=== PATIENT | female | born 1940 | race Caucasian/White ===

== ENCOUNTER 2017-03-20 06:53 | Day surgery (SDC) | payer MEDICARE, SELFPAY ==
[2017-03-18 16:05] VITALS: BMI 27.9
[2017-03-20] VITALS (17 sets, daily range): BP systolic 118–174; BP diastolic 71–89; PULSE 63–77; RESP 12–22; TEMP 36.4–36.8; O2SAT 94–100
--- NOTE | 2017-03-20 08:27 | HMH.SCOPE ---
- Procedure: Date: 03/20/17 Procedure Performed:: Colonoscopy with polypectomy Indications:: This is a 76-year-old female who returns for short-term repeat colonoscopy. In August 2016 she underwent colonoscopy that was complicated by fairly poor bowel preparation. She did have scattered diverticulosis confirmed. Fairly significant tortuosity was encountered. A pedunculated right colon polyp was excised. An apparent lobulated/complex polyp of the right colon was transiently visualized but not resected secondary to significant tortuosity and only transient visualization. Performing Provider:: Pascual Morgan MD Referring Provider:: Dr. Chris Song Sedation:: IV sedation with 7 mg of Versed and 150 mcg of fentanyl Procedure:: After informed consent was obtained, the patient was taken to the endoscopy suite. IV sedation ensued after she was transferred to the left lateral decubitus position. Digital rectal exam revealed no significant abnormality. The colonoscope was placed in position. The entire colon was evaluated. Bowel preparation was moderate with irrigation and suctioning used to improve visualization. Tortuosity and spasticity were encountered, but were improved versus prior evaluation. A complex lobulated cecal polyp was excised by way of snare. This polyp was felt to most likely represent the transiently visualized polyp last year. Splenic flexure polyp was excised with cold biopsy forceps. A polyp at 40 cm was excised with cold biopsy forceps. Fairly significant scattered diverticulosis was noted. No additional lesions were seen. The colonoscope was carefully removed and the patient was transferred to recovery. Findings:: Moderate bowel preparation (improved versus prior evaluation) Spasticity and tortuosity encountered, but improved versus prior evaluation Scattered diverticulosis unchanged Complex lobulated cecal polyp (snared) Splenic flexure polyp Polyp at 40 cm Specimens:: Complex lobulated cecal polyp (snared) Splenic flexure polyp Polyp at 40 cm Recommendations:: Repeat colonoscopy in her in 2 years secondary to size/nature of cecal polyp Complications:: No immediate Estimated blood obtained (mL): 1
== END 2017-03-20 09:30 | disposition home or self-care (01) ==
LOC: OUTP 06:56
PROVIDERS: Family Provider Family Medicine; PCP Family Medicine; Visit Provider Surgery
PROC: 0DJD8ZZ Inspection of Lower Intestinal Tract, Via Natural or Artificial Opening Endoscopic (ICD-10-PCS; principal; 2017-03-20 07:30)
DX: K57.30 Diverticulosis of large intestine without perforation or abscess without bleeding (principal); Z85.038 Personal history of other malignant neoplasm of large intestine; K63.5 Polyp of colon
CPT/HCPCS: 45380; 45385; 88305; 99152; 99153

== ENCOUNTER → 2017-05-17 15:34 | Outpatient (CLI) | payer MEDICARE, SELFPAY ==
--- NOTE | 2017-05-17 15:39 | MM_ITS ---
MM Dig screening mamm BI w/CAD CAD Screening COMPARISON: Post biopsy and cyst aspiration left mammogram 05/08/2016 and bilateral digital mammograms 03/26/2016 INDICATION: There is a history of breast cancer patient's paternal aunt. There is been previous biopsy and cyst aspiration left breast. TECHNIQUE: Standard CC and MLO images were obtained. R2 CAD reviewed. FINDINGS: There is a diffusely heterogenic parenchymal pattern somewhat lessening the sensitivity of mammography. There are 2 biopsy clips left breast. The cystic-appearing spherical structure seen in the central portion left breast March 2016 is not seen and presumably was a cyst which was aspirated. There now is a apparently new oval density deep within the left breast which in retrospect may been present previously but has shown interval increase in size. This likely is a new cyst and recommend patient return for ultrasound left breast for confirmation. There are few benign-appearing calcifications in each breast there are no suspicious microcalcifications. IMPRESSION: Heterogenic parenchymal pattern with possible new oval density left breast BI-RADS Category: 0 Need Additional Imaging Evaluation RECOMMENDED FOLLOW-UP: IMM - IMMEDIATE FOLLOW-UP RECOMMENDED (A letter has been sent to the patient regarding results of the study.)
--- NOTE | 2017-05-17 16:26 | US_ITS ---
US breast LT complete COMPARISON: Mammogram same date HISTORY: Possible new mass left breast TECHNIQUE: Ultrasound of the entire breast FINDINGS: Diffuse heterogenic echogenicity is seen in this lady with prominent heterogenic fiber glandular densities on the mammogram performed same date. Is a hypoechoic oval lesion at 3:00 position outer breast measuring 1.4 x 0.7 1.2 cm which corresponds in size and location and overall appearance to the oval lesion on the mammogram. This shows acoustic enhancement and likely is a simple cyst. There are several smaller cystic lesions seen throughout the breast. There is no suspicious solid lesions seen. IMPRESSION: Ultrasound findings compatible with the diffuse heterogenic parenchymal pattern on mammogram with benign-appearing cyst corresponding in size and location to the dominant density on the mammogram. No further workup is indicated unless the lesion becomes symptomatically and the patient would like to cyst aspiration. Recommend the patient continue with yearly screening mammography.
--- NOTE | 2017-05-17 16:26 | US_ITS ---
US breast RT complete COMPARISON: Ultrasound right breast 03/25/2014 and bilateral mammograms 05/17/2017 HISTORY: Diffusely heterogenic parenchymal pattern on mammogram same date history of previous cysts TECHNIQUE: Targeted ultrasound of the entire breast FINDINGS: There is a small hypoechoic cystic lesion with internal septation at the 6:00 position measuring 0.6 x 0.9 x 0.5 cm. There is a tiny hypoechoic benign-appearing cystic lesion at the 9:00 position measuring 0.5 x 0.4 x 0.5 cm. There are mildly dilated fluid-filled ducts in the subareolar region. There is no suspicious solid mass seen. IMPRESSION: Ultrasound confirmation of benign-appearing cysts one of which is complex and/or with internal septation, no suspicious cystic or solid lesion identified., recommend the patient continue yearly screening mammography.
== END ==
PROVIDERS: Family Provider Family Medicine; PCP Family Medicine; Visit Provider Surgery
DX: Z85.9 Personal history of malignant neoplasm, unspecified (principal); Z12.31 Encounter for screening mammogram for malignant neoplasm of breast; R92.8 Other abnormal and inconclusive findings on diagnostic imaging of breast
CPT/HCPCS: 76641; 77067

== ENCOUNTER → 2017-06-03 13:04 | Outpatient (CLI) | payer MEDICARE, SELFPAY ==
--- NOTE | 2017-06-03 13:08 | XR_ITS ---
XR DEXA axial skeleton HISTORY: ITS.REASON: OSTEOPENIA ORDERING PHYSICIAN: Efra Song MD PATIENT AGE: 77 years COMPARISON: 05/28/2011 FINDINGS: The BMD measured at the Right femoral neck is 1.269 g/cm squared with a T score of 1.7. This is considered normal according to the World Health Organization criteria. Fracture risk is low. The L1 L4 density has a T score of 5.8 is normal. There has been a 3% increase in bone density in the lumbar spine and 1% decrease in bone density in the hips compared to the previous exam.. IMPRESSION: Normal bone density.
== END ==
PROVIDERS: Family Provider Family Medicine; PCP Family Medicine; Visit Provider Family Medicine
DX: M85.89 Other specified disorders of bone density and structure, multiple sites (principal)
CPT/HCPCS: 77080

== ENCOUNTER → 2018-05-19 10:21 | Outpatient (CLI) | payer MEDICARE, SELFPAY ==
--- NOTE | 2018-05-19 10:24 | MM_ITS ---
MM Dig screening mamm BI w/CAD, US breast RT complete, US breast LT complete ORDERING PHYSICIAN : Efra Song MD PATIENT AGE: 78 years GENDER: Female COMPARISON: March 2016 & April 2017 bilateral screening mammogram. Bilateral breast ultrasound from April 2017 and May 2018 INDICATION: ITS.REASON: SCREENING TECHNIQUE: Standard CC and MLO images were obtained. R2 CAD reviewed . BILATERAL DIGITAL SCREENING MAMMOGRAM: . Dense somewhat nodular breast bilaterally reflecting underlying cyst and fibrocystic changes. . RIGHT BREAST: Areas of nodularity on one view dissipate on another in overall B right breast appears stable to previous study 2018 and 2017 listed above. LEFT BREAST: Previous percutaneous biopsy clip seen at the lateral left breast one anteriorly and one more laterally and deep breas BILATERAL BREAST ULTRASOUND RIGHT BREAST ULTRASOUND including axillary survey Survey of the entire right breast along with axillary survey Numerous small cyst scattered throughout the breast similar to previous study. No focal area of significant concern. Follow-up adequate 3:00. Small 5.5 mm cyst central breast 5:00 there is a collection of cyst which measures up to 1.1 cm.. This is similar to the area described at 6:00 and appears reasonably stable, and cystic in nature. An be followed. 6:00 Small 4 mm cyst at 6-7:00 4.. Central breast. 6:00 another small 5.9 mm cyst central breast. 9:00 posterior to the nipple there there is an elongated cyst or area of ductal prominence & ectasia which appears to account for the accounting for elongated fluid-filled area. Similar area was seen on previous study. This can be followed.. Survey of axillary regions reveal no significant findings in either breast. LEFT BREAST ULTRASOUND including axillary survey Survey entire breast included axillary survey performed.. Fibrocystic breast Enlarging dominant benign cyst is seen at 4:00, with scattered other small cyst. 4:00: A 22 mm ovoid density at deep lateral left breast has enlarged since 2018 is been followed with ultrasound that this is compatible with benign cyst on today's and prior ultrasound.. Thin wall. Clear fluid Again be followed but if palpable feature here raises concern to the patient clinically , may consider offering clinically aspiration under ultrasound guidance is an option. . 5:00 8 mm debris-filled cyst. Slightly larger but not of concern. 9:00:. Tiny 4.5 mm cyst central region breast. 10:00: A 6.5 mm cystic area central region breast 12:00. 6.5 mm benign cyst central region 1:00. There is a 8.7 mm debris-filled cyst.. Behind nipple 3:00 thin 5.7 mm cyst near nipple . Some these areas was evident before. Scattered benign nodes of the axillary region again observed. ======IMPRESSION: ======== Fibrocystic breast. Moderately dense heterogeneous appearance. LEFT BREAST. Today's Mammogram & ultrasound shows enlarging 2.2 cm benign-appearing cyst at deep central left breast, towards 4 o'clock position.. Ultrasound shows numerous other small benign appearing cyst in debris-filled cyst. RIGHT BREAST Mammogram shows no new areas of significant concern. Ultrasound shows scattered small cyst debris-filled cysts throughout . No new findings of significant concern right breast overall.. Bilateral mammogram 1 year adequate & recommended If this benign-appearing cystic area Left breast is of significant concern to the patient clinically, it could be aspirated under ultrasound, but on today's imaging and appears to be clear benign cyst with no features of to raise concern. BI-RADS Category: 2 Benign Finding(s) RECOMMEN
== END ==
PROVIDERS: PCP Family Medicine; Visit Provider Family Medicine
DX: Z12.31 Encounter for screening mammogram for malignant neoplasm of breast (principal); R92.8 Other abnormal and inconclusive findings on diagnostic imaging of breast
CPT/HCPCS: 76641; 77067

== ENCOUNTER → 2018-09-03 10:20 | Outpatient (CLI) | payer MEDICARE, SELFPAY ==
--- NOTE | 2018-09-03 10:25 | CT_ITS ---
CT abdomen pelvis wo/w con CLINICAL INDICATION: ITS.REASON: LT LEG EDEMA,H/O ENDOMETRIAL CA ORDERING PHYSICIAN: Efra Song MD PATIENT AGE: 78 years COMPARISON: 11/26/2015 TECHNIQUE: Contrast Used:75ml Optiray 350 Oral Contrast: None Axial images obtained without and with contrast with sagittal and coronal reformats. All CT scans at the facility use one or more dose reduction, viz: automated exposure control, ma/kV adjustment per patient size (including targeted exams where dose is matched to indication, i.e. head), or iterative reconstruction technique. FINDINGS: There are chronic changes in the lung bases. The liver, gallbladder, adrenal glands and pancreas have an unremarkable appearance. 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 No renal or ureteral calculi. No hydronephrosis. There is a small umbilical hernia which contains fat. There are post hysterectomy changes. There is mild thickening of the urinary bladder wall which may be due to nondistention. Cystitis is also a consideration. No pelvic mass or abnormal fluid collection is evident. There is no evidence of pelvic or inguinal or retroperitoneal adenopathy. There is a small left-sided Spigelian hernia in the upper abdominal region which contains fat. No evidence of appendicitis or diverticulitis. There is diverticulosis of the descending and sigmoid colon. No acute bony findings are evident. IMPRESSION: 1. No acute abdominal or pelvic findings. 2. There is mild thickening of the urinary bladder which may be due to nondistention or cystitis. 3. Colonic diverticulosis. No evidence of diverticulitis. 4. Small umbilical and small left Spigelian hernia in the upper abdomen containing fat
== END ==
PROVIDERS: PCP Family Medicine; Visit Provider Family Medicine
DX: R60.0 Localized edema (principal); Z85.42 Personal history of malignant neoplasm of other parts of uterus
CPT/HCPCS: 74178; Q9967

== ENCOUNTER → 2019-06-23 11:01 | Outpatient (CLI) | payer MEDICARE, SELFPAY ==
[2019-06-23 11:06] LABS: Adenovirus,PCR Not Detected (NotDetected); Bordetella Pertussis Not Detected (NotDetected); Chlamydophila Pneumoniae, PCR Not Detected (NotDetected); Coronavirus 19, PCR Not Detected (NotDetected); Coronavirus 229E Not Detected (NotDetected); Coronavirus NL63 Not Detected (NotDetected); Coronavirus OC43 Not Detected (NotDetected); Coronovirus HKU1,PCR Not Detected (NotDetected); Human Metapneumovirus Not Detected (NotDetected); Influenza A, PCR Not Detected (NotDetected); Influenza AH1, 2009 Not Detected (NotDetected); Influenza AH1, PCR Not Detected (NotDetected); Influenza AH3,PCR Not Detected (NotDetected); Influenza B, PCR Not Detected (NotDetected); Mycoplasma Pneumoniae, PCR Not Detected (NotDected); Parainfluenza 1, PCR Not Detected (NotDetected); Parainfluenza 2, PCR Not Detected (NotDetected); Parainfluenza 3, PCR Not Detected (NotDetected); Parainfluenza 4, PCR Not Detected (NotDetected); Respiratory Syncytial Virus Not Detected (NotDetected); Rhinovirus/Enterovirus Not Detected (NotDetected)
--- NOTE | 2019-06-24 15:41 | PC.NURSE ---
notified pt and Gopi RN of negative COVID 19 results.
== END ==
PROVIDERS: Visit Provider Surgery
DX: Z01.818 Encounter for other preprocedural examination (principal)
CPT/HCPCS: 87581; 87633; 87798

== ENCOUNTER 2019-06-25 08:35 | Day surgery (SDC) | payer MEDICARE, SELFPAY ==
--- NOTE | 2019-06-22 13:36 | SUR.PREOP ---
06/22/19 @ 1459--PHONE CALL MADE TO PATIENT. PATIENT UNDERSTANDS THAT LAB WORK AND COVID TESTING NEEDS TO BE COMPLETED @ 1030 ON 06/23/19. PATIENT UNDERSTANDS IF LAB WORK AND COVID-19 TESTS ARE NOT COMPLETED BY 12PM ON THAT DATE, THE SURGERY SCHEDULED WILL BE CANCELLED AND RESCHEDULED FOR ANOTHER TIME.
[2019-06-23 13:30] VITALS: BMI 31.0
[2019-06-25 08:56] VITALS: BP 156/61; PULSE 78; RESP 18; TEMP 36.7; O2SAT 96
[2019-06-25 09:47] VITALS: O2SAT 98
--- NOTE | 2019-06-25 10:24 | HMH.SCOPE ---
- Procedure: Date: 06/25/19 Procedure Performed:: Colonoscopy with polypectomy by means other than snare Indications:: History of colon polyps Performing Provider:: Pascual Morgan MD Referring Provider:: . Sedation:: Monitored anesthesia care Procedure:: After informed consent was obtained the patient was taken to the endoscopy suite. Sedation ensued after the patient was transferred to the left lateral decubitus position. Pulse, blood pressure, and oxygen saturation were monitored throughout the procedure. Digital rectal exam revealed no significant abnormality. The colonoscope was placed in position. The entire colon was evaluated. The colonoscope was carefully removed and the patient was transferred to recovery in stable condition. Please see findings and specimens below for detail. Findings:: Bowel preparation relatively fair Fairly significant spasticity Scattered diverticulosis Polyps (see specimens) Specimens:: Hepatic flexure polyp Polyp at 15 cm Recommendations:: Timing of repeat colonoscopy is pending pathology but will likely be around 3 years secondary to history of significant polyps and ongoing limitations in visualization (spasticity). Complications:: No immediate Estimated blood obtained (mL): 1
[2019-06-25 10:25] VITALS: BP 101/52; PULSE 85; RESP 18; TEMP 36.2; O2SAT 93
[2019-06-25 10:35] VITALS: BP 114/66; PULSE 78; RESP 18; O2SAT 96
[2019-06-25 10:45] VITALS: BP 129/75; PULSE 74; RESP 18; O2SAT 99
[2019-06-25 10:55] VITALS: BP 137/74; PULSE 75; RESP 18; O2SAT 100
== END 2019-06-25 11:05 | disposition home or self-care (01) ==
LOC: OUTP 08:37
PROVIDERS: PCP Family Medicine; Visit Provider Surgery
PROC: 0DJD8ZZ Inspection of Lower Intestinal Tract, Via Natural or Artificial Opening Endoscopic (ICD-10-PCS; principal; 2019-06-25 09:30)
DX: Z12.11 Encounter for screening for malignant neoplasm of colon (principal); D12.3 Benign neoplasm of transverse colon; D12.5 Benign neoplasm of sigmoid colon; Z86.010 Personal history of colon polyps; E03.9 Hypothyroidism, unspecified; I10 Essential (primary) hypertension; Z88.7 Allergy status to serum and vaccine; Z88.8 Allergy status to other drugs, medicaments and biological substances; Z91.040 Latex allergy status; Z79.82 Long term (current) use of aspirin; Z79.899 Other long term (current) drug therapy
CPT/HCPCS: 45388; 88305

== ENCOUNTER → 2019-06-26 10:15 | Outpatient (CLI) | payer MEDICARE, SELFPAY ==
--- NOTE | 2019-06-26 10:27 | MM_ITS ---
PROCEDURE: MM DIG SCREENING MAMM BI W/CAD Digital Breast Tomosynthesis Included CLINICAL INDICATION: SCREENING the COMPARISON: [facility] DIG MAMM-SCREEN KYLER from 03/24/2015 [facility] DIG MAMM-SCREEN KYLER W/CAD from 03/26/2016 [facility] DIG MAMM-DX UNI-LT W/CAD from 05/08/2016 BREASTRT US breast RT complete from 05/17/2017 [facility] MM Dig screening mamm BI w/CAD from 05/17/2017 BREASTLT US breast LT complete from 05/19/2018 [facility] MM Dig screening mamm BI w/CAD from 05/19/2018 BREASTRT US breast RT complete from 05/19/2018 US BREAST RT COMPLETE from 06/26/2019 US BREAST LT COMPLETE from 06/26/2019 TECHNIQUE: Standard CC and MLO images and 3D Tomosynthesis was obtained. R2 CAD reviewed. FINDINGS: Average fibroglandular tissue. Multiple scattered areas of of asymmetry with scattered benign-appearing nodules. Nodularity noted in the medial aspect of the right breast on the tomogram images. This area measures 9 mm possibly corresponding to the complex cystic area noted on the ultrasound of the same day. Vague area of nodularity superior right breast on the MLO view with a small calcific density. This is possibly due to overlapping fibroglandular tissue. Six-month follow-up suggested. Large benign-appearing nodule is present in the outer aspect of the left breast at the 3 o'clock region at approximately 4 cm consistent with a cyst. Surgical clip is present in the upper outer aspect of the left breast. No malignant appearing mass or malignant-appearing microcalcification is evident. The left breast cyst has increased in size compared to the previous exam there are multiple other smaller cysts present. Right breast ultrasound: Multiple cysts are present. There is a complex cyst at 2 o'clock at 5 mm and a complex septated cyst at 4 o'clock at 10 mm. There is an irregular area of echogenicity at the 7 o'clock region which appears to represent an area fibrocystic change with ductal ectasia. Left breast ultrasound: Multiple cysts are present including a 3.5 by 3 cm cyst at 3 o'clock and a 13 mm cyst at 6 o'clock as well as other smaller cyst. There is a 2 x 0.7 cm area of decreased echogenicity in the 4 o'clock region of the left breast laterally probably related overlying fibroglandular tissue. Follow-up suggested. IMPRESSION: Multiple bilateral breast cysts with scattered areas of asymmetry. There is some nodularity in the medial and superior right breast probably benign. Probable fibrocystic change with ductal ectasia at 7 o'clock in the right breast. Recommend bilateral 6 month mammographic and sonographic follow-up BI-RAD Category: 3 Probably Benign Finding Short Term Follow-up FOLLOW-UP: 6M 6Month Follow-up (A letter has been sent to the patient regarding results of the study.) Dictated by: Shawn Hauser MD 07/03/2019 13:20 Electronically signed by Shawn Hauser MD in [place] 07/03/2019 13:20
== END ==
PROVIDERS: PCP Family Medicine; Visit Provider Family Medicine
DX: Z12.31 Encounter for screening mammogram for malignant neoplasm of breast (principal); N60.12 Diffuse cystic mastopathy of left breast; N60.11 Diffuse cystic mastopathy of right breast
CPT/HCPCS: 76641; 77063; 77067

== ENCOUNTER 2019-09-15 14:48 | Emergency (ER) | payer MEDICARE, SELFPAY ==
[2019-09-15 15:17] VITALS: BP 140/77; PULSE 77; RESP 18; TEMP 37.4; O2SAT 98; BMI 30.9
--- NOTE | 2019-09-15 15:21 | HMH.EDUTC ---
[facility] [place] Disposition Clinical Impression: COVID-19 virus test result unknown Otitis media Qualifiers: Otitis media type: suppurative Chronicity: acute Laterality: right Recurrence: non-recurrent Spontaneous tympanic membrane rupture: without spontaneous rupture Qualified Code(s): H66.001 - Acute suppurative otitis media without spontaneous rupture of ear drum, right ear Disposition: Home, Self-Care Condition on Discharge: Good Instructions: Middle Ear Infection, Preventing the Spread of Coronavirus Discharge Instructions Prescriptions: Amoxicillin [Amoxicillin 500mg Tab] 500 mg PO BID 10 Days #20 tab Prescription Printed Referrals: Efra Song MD [Primary Care Provider] - Time of Disposition: 15:37 Medical Decision Making - Mehul Inquiry Pt receiving controlled substance: No Vital Signs: 09/15/19 15:17 Temperature 99.3 F Temperature Source Oral Pulse Rate [Right Brachial] 77 Respiratory Rate 18 Blood Pressure [Right Arm] 140/77 Blood Pressure Mean [Right Arm] 98 Blood Pressure Source [Right Arm] Automatic Cuff Blood Pressure Position [Right Arm] Sitting 02 Sat by Pulse Oximetry 98 Oxygen Delivery Method Room Air [facility] [place] HPI - General Chief complaint: Urgent Treatment Center Stated complaint: sore throat,tinoco,neck pain Time Seen by Provider: 09/15/19 15:21 Mode of Arrival: Ambulatory Source of Information: Patient Limitations: No Limitations Description of Symptoms (Recalled from Triage Doc. by RN): can't turn head in either direction, pain in neck, gland region both sides HEENT Symptoms (Recalled from RN notes): Yes Resp Symptoms (Recalled from RN notes): No Skin Symptoms (Recalled from RN notes): No MS Symptoms (Recalled from RN notes): Yes Functional Status (Recalled from RN notes): none - History of Present Illness Provider Complaint: 79 yr old female presents for fever 99.7, runny nose, neck soreness, headache, pain in rt side of head by ear. Pt states she had a episode 6 weeks ago when she felt her throat was closed and coughing while she was in [employer]. pt request covid test - Related Data Home Medications Medication Instructions Recorded Confirmed aspirin 81 mg tablet,delayed 81 mg PO DAILY 03/06/17 09/15/19 release atorvastatin 20 mg tablet 20 mg PO DAILY 03/06/17 09/15/19 cetirizine 10 mg capsule 10 mg PO DAILY 03/06/17 09/15/19 coenzyme Q10 100 mg capsule 100 mg PO DAILY 03/06/17 09/15/19 ibuprofen 200 mg tablet 200 mg PO DAILY 03/06/17 09/15/19 levothyroxine 50 mcg tablet 50 mcg PO DAILY 03/06/17 09/15/19 ckfizxpr-iwa-nxsti acid 0.4 1 tab PO QAM 03/06/17 09/15/19 mg-lycopene 300 mcg-lutein 250 mcg tablet Calcium Carbonate/Vitamin D3 1 each PO DAILY 03/18/17 09/15/19 [Oyster Shell 250 mg + Vit D Tb] Gabapentin [Gabapentin 300mg Cap] 300 mg PO TID 03/18/17 09/15/19 fluticasone propionate 50 1 spray INTRANASAL DAILY 30 Days 10/30/17 09/15/19 mcg/actuation nasal #16 g spray,suspension triamterene 37.5 0.5 tab PO DAILY 90 Days #45 tab 10/30/17 09/15/19 mg-hydrochlorothiazide 25 mg tablet metoprolol succinate 25 mg 25 mg PO DAILY 30 Days #30 tab 04/30/18 09/15/19 tablet,extended release 24 hr montelukast 10 mg tablet 10 mg PO DAILY 05/11/19 09/15/19 Previous Rx's Medication Instructions Recorded Amoxicillin [Amoxicillin 500mg Tab] 500 mg PO BID 10 Days #20 tab 09/15/19 Allergies Allergy/AdvReac Type Severity Reaction Status Date / Time gum mastic [GUM MASTIC] Allergy Intermediate I-RASH Verified 09/15/19 15:13 latex [LATEX] Allergy Mild Verified 09/15/19 15:13 adhesive tape [ADHESIVE TAPE] Allergy Unknown Verified 09/15/19 15:13 montelukast [MONTELUKAST] Allergy Unknown I-ITCHING Verified 09/15/19 15:13 BAAL Allergy Intermediate Uncoded 07/08/19 11:10 CINNAMON ALCOHOL Allergy Intermediate Uncoded 07/08/19 11:10 LAXATIVES Allergy Intermediate HEADACHE Uncoded 07/08/19 11:10 VICKEY EPHEDRINE NASAL Allergy Intermediate Uncoded 07/08/19 11:10 DECONGES
[2019-09-15 15:34] LABS: UTC Strep Screen (Rapid) Negative (Negative)
[2019-09-15 15:50] VITALS: BP 140/80; PULSE 80; RESP 20; TEMP 37.4
[2019-09-17 13:34] LABS: Covid-19 Nasal PCR Sendout Lex NOT DETECTED
== END 2019-09-15 15:52 | disposition home or self-care (01) ==
PROVIDERS: Emergency Provider Nurse Practitioner Family; PCP Family Medicine
DX: H66.001 Acute suppurative otitis media without spontaneous rupture of ear drum, right ear (principal); Z03.818 Encounter for observation for suspected exposure to other biological agents ruled out; Z91.040 Latex allergy status; Z91.048 Other nonmedicinal substance allergy status; Z88.8 Allergy status to other drugs, medicaments and biological substances
CPT/HCPCS: 87880; 99202; U0004

== ENCOUNTER → 2019-12-28 13:24 | Outpatient (CLI) | payer MEDICARE, SELFPAY ==
--- NOTE | 2019-12-28 | MM_ITS ---
PROCEDURE: MM DIG MAMM BI DX W/CAD Digital Breast Tomosynthesis Included CLINICAL INDICATION: FIBROCYSTIC BREAST DISEASE Follow-up abnormal mammogram COMPARISON: [facility] MM Dig screening mamm BI w/CAD from 05/17/2017 US BREASTLT US breast LT complete from 05/19/2018 [facility] MM Dig screening mamm BI w/CAD from 05/19/2018 MG MM DIG SCREENING MAMM BI W/CAD from 06/26/2019 US US BREAST RT COMPLETE from 06/26/2019 US US BREAST LT COMPLETE from 12/28/2019 US US BREAST RT COMPLETE from 12/28/2019 TECHNIQUE: Standard CC and MLO images and 3D Tomosynthesis was obtained. R2 CAD reviewed. Bilateral breast ultrasound FINDINGS: There is dense fibroglandular tissue which decreases the sensitivity of mammography. Numerous small nodular densities are present bilaterally. There is a 6 mm nodule in the medial aspect of the right breast which has a benign appearance slightly increased compared to the previous exam. There is a cyst in this region on ultrasound which may correspond to this abnormality. Left breast ultrasound: Multiple cysts are present in the left breast including a 8 mm cyst at 12 o'clock, 5 mm cyst at 2 o'clock, 8 x 5 mm cyst at 4 o'clock, 8 mm hypoechoic nodule at 6 o'clock consistent with a complicated cyst not significantly changed. 6 mm cyst at 7 o'clock. Ductal ectasia at 7 o'clock. 4 mm cyst at 9 o'clock Left breast: There remains a dominant nodule at 4 x 2.8 cm in the outer aspect of the left breast slightly increased in size. Just anterior to this nodule is an additional nodule measuring 18 mm within the central aspect of the breast slightly more prominent. Other smaller benign-appearing nodules are present. No malignant appearing mass or malignant-appearing calcification is evident. Clips are present in the outer aspect of the left breast from prior biopsy. Left breast ultrasound: Multiple cysts are noted. At 2 o'clock there is a 16 mm cyst. At 3 o'clock there is a 3 x 1.4 cm cyst.. 5 mm cyst also noted at 3 o'clock. 6 mm cyst at 4 o'clock. 16 mm cyst at 6 o'clock. Other smaller cysts are present. There is retroareolar ductal ectasia. No suspicious lesions are evident. IMPRESSION: BI-RAD Category: 2 Benign Finding(s) FOLLOW-UP: 1YR 1 Year Follow-up (A letter has been sent to the patient regarding results of the study.) Dictated by: Shawn Hauser MD 01/01/2020 11:33 Shawn Hauser MD in [place] 01/01/2020 11:33
== END ==
PROVIDERS: PCP Family Medicine; Visit Provider Family Medicine
DX: N60.12 Diffuse cystic mastopathy of left breast (principal); N60.11 Diffuse cystic mastopathy of right breast
CPT/HCPCS: 76641; 77062; 77066; G0279

== ENCOUNTER → 2020-09-16 13:40 | Outpatient (CLI) | payer MEDICARE, SELFPAY ==
--- NOTE | 2020-09-16 | CA_ITS ---
APPROVED REPORT EXAM: Comprehensive 2D, Doppler, and color-flow Echocardiogram Caterer'S Aide: Kristi Madera RT(R) Ht: 5 ft 4 in Wt: 183lbs BSA: 1.88 BP: 126/60 mmHg Indications: Edema, HTN, hyperlipidemia, asthma, hx uterine cancer, TIA, hypothyroidism 2D Dimensions LVOT 2.12 cm (M/F) 1.5-2.5 LA Volume 37.70 mL LA Volume Index 20.05 mL/m2 (M/F) 16-34 M-Mode Dimensions RVDd 2.54 cm (0.9-2.6) LA Diam 4.47 cm (1.9-4.0) LVDd 4.39 cm (3.5-5.7) Ao Diam 2.60 cm (2.0-3.7) LVDs 3.30 cm (3.5-5.7) IVSd 1.01 cm (0.6-1.1) PWd 1.01 cm (0.6-1.1) EF (Teich) 49.40% FS 24.80% EDV (Teich) 87.20 mL ESV (Teich) 44.10 mL LV Diastology E Decel Time 283.00 (160-240 msec) E/A Ratio 0.8 MED E' 4.80 (< 7 cm/sec) E'/MED E' Ratio 14.75 (>14) LAT E' 5.60 (<10 cm/sec) E/LAT E' Ratio 12.64 (>14) Mitral Valve MV E Max James. 71.00 (40-130 cm/s) MV A Velocity 93.00 (40-130 cm/s) E/A Ratio 0.76 MV Decel. Time 283.00 (160-240 ms) MV PHT 83.00 ms Left Ventricle Left atrium is mildly enlarged, left ventricle is normal size, mild concentric left ventricular hypertrophy, visually estimated ejection fraction 55% with no regional wall motion abnormality, grade 1 diastolic dysfunction seen without tissue Doppler evidence of raise left atrial pressure. Right Ventricle Right atrium and right ventricle are normal size and contractility. Aortic Valve Aortic valve is minimally thickened and fibrosed, there is no aortic stenosis or aortic insufficiency. Mitral Valve Mitral valve is grossly normal, there is mild mitral regurgitation Tricuspid Valve Tricuspid valve grossly normal, there is mild tricuspid regurgitation, tricuspid regurgitation jet velocity is inadequate for calculation of the right ventricular systolic pressure. Pulmonic Valve Pulmonic valve is poorly visualized. Great Vessels Aortic root is normal size Pericardium No significant pericardial effusion noted. Conclusion 1. Mildly enlarged left atrium, normal left ventricular size, mild concentric left ventricular hypertrophy, visually estimated ejection fraction 55% with no regional wall motion abnormality, grade 1 diastolic dysfunction seen without tissue Doppler evidence of raise left atrial pressure. 2. Thickened and calcified aortic valve without aortic stenosis or aortic insufficiency. 3. Mild mitral and tricuspid regurgitation. 4. No significant pericardial effusion noted. Electronically signed by : Jc Steel, 09/16/2020 18:43:57
== END ==
PROVIDERS: PCP Family Medicine; Visit Provider Family Medicine
DX: R60.0 Localized edema (principal)
CPT/HCPCS: 93306

== ENCOUNTER → 2020-12-30 14:59 | Outpatient (CLI) | payer MEDICARE, SELFPAY ==
--- NOTE | 2020-12-30 15:01 | MM_ITS ---
PROCEDURE INFORMATION: Exam: MG Bilateral Diagnostic Breast Tomosynthesis Exam date and time: 12/30/2020 3:01 PM Age: 80 years old Clinical indication: Due for annual screening mammography. History of bilateral breast cysts TECHNIQUE: Imaging protocol: Bilateral Diagnostic tomosynthesis and 2D mammography including computer-aided detection (CAD) when performed. Unilateral or bilateral exam. COMPARISON: 1. MG MM DIG MAMM BI DX W/CAD 12/28/2019 1:35 PM 2. MG MM DIG SCREENING MAMM BI W/CAD 06/26/2019 10:44 AM 3. MG SCBI MM Dig screening mamm BI w/CAD 05/19/2018 10:51 AM 4. MG SCBI MM Dig screening mamm BI w/CAD 05/17/2017 3:46 PM FINDINGS: MAMMOGRAPHY: The breast tissue is heterogeneously dense, which may obscure small masses. 3 o'clock posterior left breast mass, 1 o'clock middle 1/3 left breast mass, and slightly medial left middle 1/3 mass have progressed in size slightly when compared with prior mammograms. These maintain circumscribed margins with gently lobulated contour and no associated architectural distortion or suspicious calcifications. Please refer to left breast ultrasound same day which demonstrated numerous complicated cysts for which six-month follow-up targeted left breast ultrasound was recommended Otherwise, no new mass, architectural distortion, or suspicious calcifications have developed to suggest malignancy within either breast. No axillary adenopathy. IMPRESSION: No mammographic evidence of malignancy. Continued annual screening mammography is recommended. Please refer to ultrasound of the left breast from 12/30/2020 which was submitted separately from this examination. Short-term follow-up targeted ultrasound of the left breast was recommended to assure stability of enlarging complicated cysts ASSESSMENT: BI-RADS category 2: Benign
--- NOTE | 2020-12-30 15:13 | US_ITS ---
PROCEDURE INFORMATION: Exam: US Right Breast, Complete Exam date and time: 12/30/2020 3:13 PM Age: 80 years old Clinical indication: Short-term follow-up was requested to assess stability of right breast nodules TECHNIQUE: Imaging protocol: Complete ultrasound of all four quadrants of the Right breast and the retroareolar regions, including ultrasound of the axilla when performed. COMPARISON: Right breast Ultrasound 12/28/2019, 06/26/2019, 05/17/17 FINDINGS: Breast: Heterogeneously hypoechoic mostly circumscribed horizontally oriented masses throughout the right breast demonstrates morphologically similar to each other features consistent with complicated cysts as follows: 6 x 7 x 7 mm 12 o'clock outer compared with 6 x 8 x 6 mm on 12/28/2019 4 x 4 x 3 mm right 2 o'clock periareolar compared with 5 x 6 x 4 mm on 12/28/2019 4 mm 2 o'clock periareolar compared with 6 mm on 12/28/2019 7 x 6 x 3 mm 3 o'clock periareolar compared with 4 mm previously 6 mm 4 o'clock periareolar compared with 8 mm previously 6 mm 6 o'clock right breast compared with 7 mm previously 12 mm 9 o'clock periareolar deep tissues, not previously assessed No suspicious solid or cystic mass is apparent. No architectural distortion or shadowing is present IMPRESSION: There are numerous complicated cystic structures, most of which has slightly diminished in size and a couple of which have set slightly progressed in size throughout the right breast. These have features of benign cysts. No sonographic evidence of malignancy. Annual mammographic screening is recommended unless otherwise clinically indicated. ASSESSMENT: BI-RADS category 2: Benign
--- NOTE | 2020-12-30 15:13 | US_ITS ---
PROCEDURE INFORMATION: Exam: US Left Breast, Complete Exam date and time: 12/30/2020 3:13 PM Age: 80 years old Clinical indication: Short-term follow-up ultrasound was recommended to assess stability of left breast masses TECHNIQUE: Imaging protocol: Complete ultrasound of all four quadrants of the Left breast and the retroareolar regions, including ultrasound of the axilla when performed. COMPARISON: US BREAST LT COMPLETE 12/28/2019 2:07 PM FINDINGS: Breast: Hypoechoic/anechoic mostly circumscribed a horizontally oriented mass with posterior acoustic enhancement and morphologically similar features to 1 another , highly suggestive of benign complicated cysts as follows: 4 mm 12 o'clock periareolar 21 by 21 x 14 mm 12 o'clock periareolar, previously 4 mm 32 x 38 x 16 mm 1 o'clock left mid, previously 35 x 14 by 28 mm 8 x 3 x 9 mm 3 o'clock periareolar, unchanged 33 x 29 x 24 mm 5 o'clock outer left breast 23 x 19 x 14 mm 6 o'clock periareolar 18 by 20 x 16 mm 9 o'clock periareolar 9 x 9 x 7 mm 11 o'clock left mid breast No axillary adenopathy No suspicious solid or cystic mass is present No architectural distortion or shadowing is present IMPRESSION: There are numerous enlarging complicated left breast cystic masses , morphologically similar to 1 another and highly suggestive of benign complicated and simple cysts. Continued surveillance is warranted with targeted ultrasound in 6 months ASSESSMENT: BI-RADS category 3: Probably benign
== END ==
PROVIDERS: PCP Family Medicine; Visit Provider Family Medicine
DX: R92.8 Other abnormal and inconclusive findings on diagnostic imaging of breast (principal)
CPT/HCPCS: 76641; 77062; 77066; G0279

== ENCOUNTER → 2021-03-08 15:02 | Outpatient (CLI) | payer MEDICARE, SELFPAY | PROVIDERS: Visit Provider Nurse Practitioner | DX: Z20.822 Contact with and (suspected) exposure to COVID-19 (principal) | CPT/HCPCS: C9803; U0003; U0005 ==

== ENCOUNTER → 2021-07-04 12:55 | Outpatient (CLI) | payer MEDICARE, SELFPAY ==
--- NOTE | 2021-07-04 12:58 | US_ITS ---
PROCEDURE INFORMATION: Exam: US Left Breast, Complete Exam date and time: 07/04/2021 1:16 PM Age: 81 years old Clinical indication: Short-term radiographic follow-up for probable cystic change. TECHNIQUE: Imaging protocol: Complete ultrasound of all four quadrants of the Left breast and the retroareolar regions, including ultrasound of the axilla when performed. COMPARISON: US BREAST LT COMPLETE 12/30/2020 3:38 PM FINDINGS: Breast: Sonographic images of the left breast including the retroareolar region, all 4 quadrants and the axilla do not demonstrate any solid masses. Widespread benign cystic changes present ranging in size from several mm to a labor union business representative dominant cyst in the 4 o'clock axis 5 cm from the nipple measuring 3.2 cm in greatest dimension. No architectural distortion or acoustical shadowing. No skin thickening or axillary adenopathy. IMPRESSION: No sonographic evidence of malignancy. Benign cystic change. Annual mammographic screening is recommended in December 2021 unless otherwise clinically indicated. ASSESSMENT: BI-RADS Category 2: Benign
== END ==
PROVIDERS: PCP Family Medicine; Visit Provider Family Medicine
DX: R92.8 Other abnormal and inconclusive findings on diagnostic imaging of breast (principal)
CPT/HCPCS: 76641

== ENCOUNTER → 2021-09-26 14:54 | Outpatient (CLI) | payer MEDICARE, SELFPAY ==
[2021-09-26 15:40] LABS: Basophils # 0.1 K/mm3 (0-0.2); Basophils % 1.8 % (0.1-2.0); Eosinophils # 0.3 K/mm3 (0.0-0.4); Eosinophils % 3.8 % (0.1-12.0); Hemoglobin 12.7 g/dL (12.2-16.2); Lymphocytes # 3.2 K/mm3 (0.7-4.5); Mean Corpuscular Hemoglobin 32.6 pg (27.0-31.2); Mean Corpuscular Volume 105.1 fl (81-99); Mean Platelet Volume 8.9 fl (7.4-10.4); Monocytes # 0.6 K/mm3 (0.1-1.0); Monocytes % 8.8 % (1.7-9.3); Neutrophils # 2.7 K/mm3 (1.8-7.8); Neutrophils % 39.6 % (37.0-80.0); Platelet Count 336 K/mm3 (142-424); Red Cell Distribution Width 13.2 % (11.5-17.5); White Blood Count 6.8 K/mm3 (4.8-10.8)
[2021-09-26 18:13] LABS: Anion Gap 9.4 mEq/L (5-15); Blood Urea Nitrogen 16 mg/dl (7-17); Calcium 9.4 mg/dl (8.4-10.2); Carbon Dioxide 29 mmol/L (22.0-30.0); Chloride 105 mmol/L (98-107); Estimated Glomerular Filt Rate 48 ml/min (>60); GFR (African American) 58 ML/MIN (>60); Glucose 99 mg/dl (74-100); Potassium 4.4 mmoL/L (3.5-5.1); Sodium 139 mmol/L (136-145)
== END ==
PROVIDERS: PCP Family Medicine; Visit Provider Surgery
DX: M54.30 Sciatica, unspecified side; Z01.812 Encounter for preprocedural laboratory examination; Z20.822 Contact with and (suspected) exposure to COVID-19; N60.02 Solitary cyst of left breast
CPT/HCPCS: 36415; 80048; 85025; C9803; U0003; U0005

== ENCOUNTER 2021-09-28 06:03 | Day surgery (SDC) | payer MEDICARE, SELFPAY ==
[2021-09-28] VITALS (8 sets, daily range): BP systolic 133–162; BP diastolic 66–86; PULSE 60–98; RESP 16–18; TEMP 36.1–36.9; O2SAT 96–98; BMI 30.9
--- NOTE | 2021-09-28 06:35 | ECG_ITS ---
APPROVED REPORT Exam: Resting ECG HR:64 bpm ECG Measurements Heart Rate 64 AXES MD 190 P 36 QRSd 98 QRS -11 QT 427 T 47 QTc 436 Conclusion SINUS RHYTHM LOW QRS VOLTAGE IN EXTREMITY LEADS Late R wave progression Isolated Q in III - old finding Electronically signed by : Prateek Riddle MD 09/29/2021 21:43:52
--- NOTE | 2021-09-28 07:12 | SUR.PREOP ---
Maryanne Cleveland ROW BOSS has reviewed abnormal EKG and has ok'd procedure/
--- NOTE | 2021-09-28 07:17 | HMH.ANESCL ---
[facility] Anesthesia Checklist - Patient Identification Patient Identification: Arm Band - Structural Data Admitted From: Home Planned Operative Procedure/s: Partial mastectomy Consent for Planned Operative Procedure(s) Verified: Yes - NPO Status Verified Time NPO: 00:00 - Additional verifications Anesthesia Reactions: No - Airway Assessment C-Spine Mobility Assessed: Yes TMJ Mobility Assessed: Yes Dentition: Good Dentition - Neurological Assessment Level of Consciousness: Awake Hx Seizures: No Numbness or tingling in extremities: No - Anesthesia Plan Anesthesia Risk discussed: Yes Anesthesia Plan: Verified ASA Class: II Anesthesia Type: General [facility] History I have reviewed the patient's past medical history: Yes Medical History: Reports:: Cancer, Hyperlipidemia, Hypertension Denies:: Diabetes Mellitus Type 1, Diabetes Mellitus Type 2, Internal Pacemaker, Lung Disease, MRSA, Seizures *Have you ever received a pneumonia vaccine?: Yes *Have you received a flu vaccine this season?: No Other Medical History: Reports: Arthritis, Cataracts, Hypothyroidism Anesthesia experience/problems:: None Laterality Cases: Bilateral: Breast Biopsy, Tonsillectomy Other Surgeries: Yes: No Previous Surgery, Cancer Surgery, Colonoscopy, Hysterectomy-Total, Splenectomy, Other. No: Pacemaker Amputation: No Fractures: No - *Social History Last grade of school completed: High school graduate Smoking Status: Never smoker Alcohol Intake: never Alcohol Intake Frequency:: holidays/special occasions only Substance Use Type: denies use *Occupational Status:: retired Housing: house Household Members: none *Travel in the last 8 weeks: None Family Hx:: No significant family history, Asthma, Cancer, Hyperlipidemia, Diabetes, Heart Attack, Hypertension, Stroke
--- NOTE | 2021-09-28 08:04 | HMH.ANESI ---
[facility] Anesthesia Record Part I Intake, IV Amount: 600 Estimated blood loss (mL): 25 Urine output (mL): 0 Blood Products used (#): none Blood Pressure: 160/81 SaO2: 97 Pulse Rate: 98 Respiratory Rate: 18 Temperature: 97 F Patient is:: Awake, Drowsy
--- NOTE | 2021-09-28 08:22 | HMH.OPNOTE ---
Date of procedure: 09/28/21 Pre-op Diagnosis:: Cystic left breast mass Post-op Diagnosis:: Same Procedure performed:: Excision of complex cystic left breast mass (partial mastectomy) Surgeon:: Pascual Morgan MD Anesthesia: LMA Estimated blood loss (mL): 25 Operative findings:: Lobulated cystic breast mass overlying dominant cyst Operative note:: After informed consent was obtained the patient was taken to the operating room and placed in the supine position. General anesthesia with laryngeal mask airway was achieved. Her left breast was prepped and draped in a sterile fashion. An incision was made over the palpable lateral lesion. The deep subcutaneous tissue was dissected with a combination of scalpel and electrocautery. As the lesion was elevated electrocautery was used to excise the mass in toto and it was passed off for pathologic evaluation after suture demarcation of margin. A dominant underlying cystic lesion was then carefully elevated and excised in a similar manner. It was also passed off for pathologic evaluation after suture demarcation. Note that the non-dyed suture was utilized to david the superficial and deep margins (short superficial/long deep). The dyed suture was utilized to david the superior and lateral margins (short superior/long lateral). Electrocautery was utilized to achieve hemostasis. The wound base and margins were marked with metallic clips. The deep subcutaneous tissue was reapproximated with interrupted Vicryl and skin was then closed with 4-0 Monocryl in a running manner. Steri-Strips were applied and the patient was transferred to recovery in stable condition removal of her laryngeal mask airway. Condition: stable Disposition: PACU Specimens:: Left lateral breast mass Dominant left lateral breast cyst Complications:: No immediate
[2021-09-28 08:41] LABS: POC Glucose,Bedside 120 (70-110)
--- NOTE | 2021-09-28 09:08 | PC.NURSE ---
Addendum entered by Mckayla Mcdowell RN 09/28/21 09:10: addendum to previous note occurred at 0850 (late entry) Original Note: 0840-pt's BP elevated 150's-160's SBP from baseline prior to surgery, pt reports she has not taken home medications today, notified [employer] ATTENDANT with no further orders, educated pt on taking meds when she gets home and will notify post op nurse to educate prior to discharge, will continue to monitor
--- NOTE | 2021-09-28 09:20 | PC.NURSE ---
0856-detailed report given to PATT Drake 899-pt transported to post op via stretcher w/jude rails up and left in care of PATT Drake with bed locked in lowest position, vss, pt stable
[2021-09-28 13:36] LABS: POC Glucose,Bedside 122 (70-110)
[2021-09-29 12:36] VITALS: BP 150/69; PULSE 66; TEMP 36.3
--- NOTE | 2021-09-29 12:36 | P.PN_ITS ---
[facility] Anesthesia Record Part II Discharge Time: 09:00 Destination: Surgical Day Care (OP Surgery) PACU nurse assessment reviewed?: Yes Patient Condition:: Good Anesthesia Complications:: None Swallowing reflex intact?: Yes Cyanosis?: No Blood Pressure: 150/69 Pulse Rate: 66 Temperature: 97.4 F Mental Status: Alert & Oriented Pain level:: 0 Nausea and/or vomitting:: None Intake, IV Amount: 0
== END 2021-09-28 09:32 | disposition home or self-care (01) ==
LOC: OR 06:04
PROVIDERS: PCP Family Medicine; Visit Provider Surgery
DX: I10 Essential (primary) hypertension; E78.5 Hyperlipidemia, unspecified; Z79.899 Other long term (current) drug therapy; D24.2 Benign neoplasm of left breast
CPT/HCPCS: 19301; 82962; 88305; 93005; 96374; J2405

== ENCOUNTER → 2022-06-19 16:53 | Outpatient (CLI) | payer MEDICARE, SELFPAY ==
--- NOTE | 2022-06-19 16:58 | MM_ITS ---
PROCEDURE INFORMATION: Exam: MG Bilateral Screening 3D Mammography Exam date and time: 06/19/2022 4:47 PM Age: 82 years old Clinical indication: Screening examination TECHNIQUE: Imaging protocol: Bilateral Screening tomosynthesis and 2D mammography including computer-aided detection (CAD) when performed. COMPARISON: 1. MG MM DIG MAMM BI DX W/CAD 12/30/2020 3:14 PM 2. MG MM DIG MAMM BI DX W/CAD 12/28/2019 1:35 PM FINDINGS: MAMMOGRAPHY: Breast composition: The breasts are heterogeneously dense, which may obscure small masses. Mass: No new or suspicious masses Architectural distortion: None. Calcifications: No suspicious calcifications. Asymmetric density: None. Skin thickening: None. Axillary adenopathy: None. IMPRESSION: No mammographic evidence of malignancy. Annual screening is recommended unless otherwise clinically indicated. ASSESSMENT: BI-RADS Category 1: Negative
== END ==
PROVIDERS: PCP Family Medicine; Visit Provider Family Medicine
DX: Z12.31 Encounter for screening mammogram for malignant neoplasm of breast (principal)
CPT/HCPCS: 77063; 77067

== ENCOUNTER 2022-08-28 07:28 | Day surgery (SDC) | payer MEDICARE, SELFPAY ==
[2022-08-27 10:49] VITALS: BMI 25.7
[2022-08-28 07:57] VITALS: BP 124/76; PULSE 71; RESP 18; TEMP 36.7; O2SAT 100
[2022-08-28 08:09] LABS: POC Glucose,Bedside 136 (70-110)
--- NOTE | 2022-08-28 08:11 | EXP.ANES.CKL ---
[facility] Disclaimer: The information contained in this section may have been updated after the patient was seen, as this information can be updated by other users. Medical History Arrhythmia Heart murmur History of malignant neoplasm Osteoarthritis Renal insufficiency Sciatica Surgical History H/O breast biopsy History of hysterectomy History of tonsillectomy Family History Other Family history of abdominal aortic aneurysm Family history of cancer Family history of diabetes mellitus type II Family history of myocardial infarction Family history of stroke Social History Smoking Status: Never smoker alcohol intake: never counseling provided: provider counseling substance use type: denies use current occupational status: retired Travel in the last 8 weeks: None household members: none housing: house current occupational exposures/hazards: No caffeine: Yes [facility] Anesthesia Checklist Patient Identification Patient Identification: Arm Band Structural Data Admitted From: Home Planned Operative Procedure/s: colonoscopy Consent for Planned Operative Procedure(s) Verified: Yes Verified Documents: Surgical Consent and History and Physical NPO Status Verified Time NPO: 00:00 Additional verifications Anesthesia Reactions: No Airway Assessment C-Spine Mobility Assessed: Yes TMJ Mobility Assessed: Yes Dentition: Good Dentition Neurological Assessment Level of Consciousness: Awake and Alert Anesthesia Plan Anesthesia Risk discussed: Yes Anesthesia Plan: Verified ASA Class: III Anesthesia Type: MAC
[2022-08-28 08:30] VITALS: O2SAT 100
--- NOTE | 2022-08-28 08:54 | HMH.SCOPE ---
Procedure: Date: 08/28/22 Patient Date of :: 1940 Procedure Performed:: Colonoscopy Indications:: History of colon polyps Performing Provider:: Pascual Morgan MD Referring Provider:: . Sedation:: Monitored anesthesia care Procedure:: After informed consent was obtained the patient was taken to the endoscopy suite. Sedation ensued after the patient was transferred to the left lateral decubitus position. Pulse, blood pressure, and oxygen saturation were monitored throughout the procedure. Digital rectal exam revealed no significant abnormality. The colonoscope was placed in position. The entire colon was evaluated. The colonoscope was carefully removed and the patient was transferred to recovery in stable condition. Please see findings and specimens below for detail. Findings:: Bowel preparation moderate Pandiverticulosis Hemorrhoidal cushions Fairly significant spasticity/lack of relaxation Specimens:: None Recommendations:: Repeat colonoscopy in 3-5 years secondary to history of polyps, moderate preparation, and spasticity/lack of relaxation. Complications:: No immediate Estimated blood obtained (mL): 0 Colonoscopy Component Colonoscopy Component Was a colonoscopy performed during today's procedure?: Yes Recommended follow up colonoscopy of at least 10 years?: No If no, follow up colonoscopy recommended in ___ years?: 3-5 years Reason for not recommending >/= 10 yr follow-up interval?: Moderate bowel preparation; history of polyps
[2022-08-28 09:00] VITALS: BP 82/50; PULSE 74; RESP 20; TEMP 36.1; O2SAT 94
[2022-08-28 09:10] VITALS: BP 113/64; PULSE 74; RESP 20; TEMP 36.1; O2SAT 94
[2022-08-28 09:20] VITALS: BP 130/67; PULSE 71; RESP 20; O2SAT 94
[2022-08-28 09:30] VITALS: BP 134/81; PULSE 68; RESP 18; O2SAT 95
== END 2022-08-28 09:40 | disposition home or self-care (01) ==
PROVIDERS: PCP Family Medicine; Visit Provider Surgery
PROC: 0DJD8ZZ Inspection of Lower Intestinal Tract, Via Natural or Artificial Opening Endoscopic (ICD-10-PCS; principal; 2022-08-28 08:30)
DX: Z12.11 Encounter for screening for malignant neoplasm of colon (principal); Z86.010 Personal history of colon polyps; K57.90 Diverticulosis of intestine, part unspecified, without perforation or abscess without bleeding; Z83.3 Family history of diabetes mellitus
CPT/HCPCS: G0105; 82962; J2704

== ENCOUNTER → 2022-09-05 15:42 | Outpatient (CLI) | payer MEDICARE, SELFPAY ==
--- NOTE | 2022-09-05 16:04 | ECG_ITS ---
APPROVED REPORT Exam: Resting ECG HR:66 bpm ECG Measurements Heart Rate [address] 179 P 37 QRSd 97 QRS -16 QT 393 T 33 QTc 407 Conclusion SINUS RHYTHM LOW QRS VOLTAGE IN PRECORDIAL LEADS with late R wave progression Isolated Q in III - old finding ABNORMAL ECG UNCONFIRMED REPORT Electronically signed by : Prateek Riddle MD 09/05/2022 21:00:17
[2022-09-05 16:37] LABS: Basophils # 0.1 K/mm3 (0-0.2); Basophils % 1.1 % (0.1-2.0); Eosinophils # 0.4 K/mm3 (0.0-0.4); Eosinophils % 4.6 % (0.1-12.0); Hematocrit 36.9 % (37.0-47.0); Hemoglobin 12.2 g/dL (12.2-16.2); Lymphocytes # 3.3 K/mm3 (0.7-4.5); Mean Corpuscular HGB Conc 32.9 g/dL (31.8-35.4); Mean Corpuscular Hemoglobin 32.6 pg (27.0-31.2); Mean Platelet Volume 7.8 fl (7.4-10.4); Monocytes # 0.5 K/mm3 (0.1-1.0); Monocytes % 6.2 % (1.7-9.3); Neutrophils # 4.1 K/mm3 (1.8-7.8); Platelet Count 298 K/mm3 (142-424); Red Blood Count 3.73 M/mm3 (4.20-5.40); White Blood Count 8.3 K/mm3 (4.8-10.8)
[2022-09-05 17:00] LABS: Blood Urea Nitrogen 19 mg/dl (7-17); Carbon Dioxide 33 mmol/L (22.0-30.0); Chloride 100 mmol/L (98-107); Estimated Glomerular Filt Rate 53 ml/min (>60); GFR (African American) 64 ML/MIN (>60); Glucose 117 mg/dl (74-100); Sodium 138 mmol/L (136-145)
== END ==
PROVIDERS: PCP Family Medicine; Visit Provider Surgery
DX: L02.91 Cutaneous abscess, unspecified (principal); Z85.9 Personal history of malignant neoplasm, unspecified; Z01.818 Encounter for other preprocedural examination
CPT/HCPCS: 36415; 80048; 85025; 93005

== ENCOUNTER 2022-09-06 06:01 | Day surgery (SDC) | payer MEDICARE, SELFPAY ==
[2022-09-05 15:31] VITALS: BMI 30.5
[2022-09-06] VITALS (10 sets, daily range): BP systolic 125–157; BP diastolic 57–79; PULSE 62–69; RESP 12–18; TEMP 36.6–36.7; O2SAT 95–98
--- NOTE | 2022-09-06 07:42 | EXP.OP.NOTE ---
Date of procedure: 09/06/22 Pre-op Diagnosis:: Abscessed sebaceous cyst along inferior medial left breast Post-op Diagnosis:: Same Procedure performed:: Incision and drainage/debridement of abscessed left breast cyst Surgeon:: Pascual Morgan MD Anesthesia: LMA Estimated blood loss (mL): 15 Operative findings:: Purulent pocket with surrounding necrotic/inflamed tissue Operative note:: After informed consent was obtained the patient was taken to the operating room and placed in the supine position. General anesthesia with laryngeal mask airway was achieved. Her left breast was prepped and draped in a sterile fashion. After infiltration local anesthetic an elliptical incision was made around the central portion of the lesion. The deep subcutaneous tissue was dissected with electrocautery. A purulent pocket was evacuated. Surrounding necrotic breast tissue/cyst cavity was then debrided. Electrocautery was utilized to achieve hemostasis. The wound was thoroughly irrigated prior to being packed with Kerlix. Dressings were applied and the patient was transferred to recovery in stable condition after removal of her laryngeal mask airway. Condition: stable Disposition: PACU Specimens:: Left breast cyst and surrounding breast tissue Complications:: No immediate
--- NOTE | 2022-09-06 07:54 | EXP.ANES.CKL ---
[facility] Disclaimer: The information contained in this section may have been updated after the patient was seen, as this information can be updated by other users. Medical History Arrhythmia Heart murmur History of malignant neoplasm Osteoarthritis Renal insufficiency Sciatica Surgical History H/O breast biopsy History of colonoscopy History of hysterectomy History of tonsillectomy Family History Other Family history of abdominal aortic aneurysm Family history of cancer Family history of diabetes mellitus type II Family history of myocardial infarction Family history of stroke Social History Smoking Status: Never smoker alcohol intake: never counseling provided: provider counseling substance use type: denies use current occupational status: retired Travel in the last 8 weeks: None household members: none housing: house current occupational exposures/hazards: No caffeine: Yes [facility] Anesthesia Checklist Patient Identification Patient Identification: Arm Band and Family Structural Data Admitted From: Home Planned Operative Procedure/s: Left Breast sabacious cyst I & D and debriedment. Consent for Planned Operative Procedure(s) Verified: Yes Verified Documents: Surgical Consent NPO Status Verified Time NPO: 00:00 Additional verifications Patient : No Anesthesia Reactions: No Hx Blood Transfusions: No Blood Transfusion Reaction: No Cephalosporin Allergy: No Previous Colonoscopy: No Airway Assessment C-Spine Mobility Assessed: Yes TMJ Mobility Assessed: Yes Dentition: Good Dentition Neurological Assessment Level of Consciousness: Awake, Alert, Appropriate and Follows Commands Hx Seizures: No Numbness or tingling in extremities: No Anesthesia Plan ASA Class: III Anesthesia Type: General Preoperative Comments Pre-Operative Comments: Advanced age. Heart murmur. Hypothyrodism.
--- NOTE | 2022-09-06 07:57 | EXP.ANES.I ---
[facility] Anesthesia Record Part I Anesthesia Record I Intake, IV Amount: 600 Estimated blood loss (mL): 0 Urine output (mL): 0 Blood Products used (#): none Blood Pressure: 125/57 SaO2: 95 Pulse Rate: 69 Respiratory Rate: 14 Temperature: 98 F Patient is:: Drowsy and Stable Stable to PACU at:: 07:50
--- NOTE | 2022-09-10 07:43 | P.PNANES_ITS ---
[facility] Anesthesia Record Part II Anesthesia Record Part II Discharge Time: 08:20 Destination: Surgical Day Care (OP Surgery) PACU nurse assessment reviewed?: Yes Patient Condition:: Good Anesthesia Complications:: None Swallowing reflex intact?: Yes Cyanosis?: No Blood Pressure: 150/79 Pulse Rate: 66 Temperature: 98.1 F Mental Status: Alert & Oriented Pain level:: 0 Nausea and/or vomitting:: None Intake, IV Amount: 0
[2022-09-10 07:44] VITALS: BP 150/79; PULSE 66; TEMP 36.7
== END 2022-09-06 08:50 | disposition home or self-care (01) ==
PROVIDERS: PCP Family Medicine; Visit Provider Surgery
DX: N61.1 Abscess of the breast and nipple (principal); L72.0 Epidermal cyst
CPT/HCPCS: 10061; 88304; 96374; J2405

== ENCOUNTER → 2022-10-15 12:20 | Outpatient (CLI) | payer MEDICARE, SELFPAY ==
--- NOTE | 2022-10-15 12:26 | XR_ITS ---
FINAL REPORT CLINICAL HISTORY: Left knee arthritis and pain COMPARISON: None FINDINGS: LEFT KNEE 3 views of the left knee were obtained. There is no acute fracture or dislocation. There is moderate narrowing of the medial joint space. Subchondral sclerosis and osteophyte formation is noted. There are prominent osteophytes along the undersurface of the patella. Soft tissues are unremarkable. IMPRESSION: Findings consistent with advanced osteoarthritis. Reviewed, Interpreted and Dictated by Lazaro Larose MD Transcribed by Aminata Herrera Authenticated and [facility]
--- NOTE | 2022-10-15 12:26 | XR_ITS ---
FINAL REPORT CLINICAL HISTORY: Right knee pain and arthritis COMPARISON: None FINDINGS: RIGHT KNEE 3 views of the right knee were obtained. There is no acute fracture or dislocation. There is moderate narrowing of the medial joint space. Subchondral sclerosis and osteophyte formation is noted. There are prominent osteophytes along the undersurface of the patella. Soft tissues are unremarkable. IMPRESSION: Findings consistent with advanced osteoarthritis. Reviewed, Interpreted and Dictated by Lazaro Larose MD Transcribed by Aminata Herrera Authenticated and [facility]
== END ==
PROVIDERS: PCP Family Medicine; Visit Provider Family Medicine
DX: M17.0 Bilateral primary osteoarthritis of knee (principal)
CPT/HCPCS: 73562

== ENCOUNTER 2023-04-08 08:02 | Outpatient (CLI) | payer MEDICARE, SELFPAY ==
--- NOTE | 2023-04-08 08:02 | US_ITS ---
FINAL REPORT CLINICAL HISTORY: possible thyroid dysfunction and goiter COMPARISON: None FINDINGS: THYROID ULTRASOUND: The right lobe of the thyroid measures 3.5 x 1.5 x 1.24 cm in size. No focal nodule or mass is identified. The left lobe of the thyroid gland measures 1.8 x 0.5 x 0.7 cm in size. No focal nodule or mass is identified. The isthmus of the thyroid gland measures 3 mm in thickness. IMPRESSION: No focal mass or nodule seen in the thyroid gland. Reviewed, Interpreted and Dictated by Lazaro Larose MD Transcribed by Raya Womack Authenticated and [facility]
--- NOTE | 2023-04-08 08:02 | FL_ITS ---
FINAL REPORT CLINICAL HISTORY: dysphagia ft 1:06 dap 54.32 FINDINGS: BARIUM SWALLOW HISTORY: Dysphagia. TECHNIQUE: The patient ingested barium contrast. Spot and overhead films were performed. A total of 36 images were saved. FINDINGS: The esophagus is unremarkable. There is no gastroesophageal reflux demonstrated. No mucosal defects are seen. There is mild esophageal dysmotility. No changes of esophagitis are evident. 13 mm barium tablet passes easily through the esoophagus and into the stomach. FLUOROSCOPY TIME: 1 minute 6 seconds Radiation exposure in Total DAP: 54.32 uGym2 IMPRESSION: Mild esophageal dysmotility. Otherwise, unremarkable barium swallow. Reviewed, Interpreted and Dictated by Lazaro Larose MD Transcribed by Lauren León PA-C Authenticated and [facility]
[2023-04-08] MEDS: BARIUM SULFATE (E-Z-HD 340GM);135ML BOTTLE 135 ML PO (08:56)
[2023-04-08] MEDS: BARIUM SULFATE(LIQUID E-Z-PAQUE);355ML BOTTLE 355 ML PO (08:56)
[2023-04-08 10:23] LABS: Thyroid Stimulating Hormone 1.15 uIU/mL (0.465-4.68)
== END 2023-04-08 23:59 ==
LOC: RAD 08:02
PROVIDERS: PCP Family Medicine; Visit Provider Nurse Practitioner
DX: E07.9 Disorder of thyroid, unspecified (principal); R13.10 Dysphagia, unspecified
CPT/HCPCS: 36415; 74220; 76536; 84439; 84443

== ENCOUNTER 2023-07-17 13:01 | Outpatient (CLI) | payer MEDICARE, SELFPAY ==
--- NOTE | 2023-07-17 13:04 | MM_ITS ---
PROCEDURE INFORMATION: Exam: MG Bilateral Screening 3D Mammography Exam date and time: 07/17/2023 1:00 PM Age: 83 years old Clinical indication: Screening examination TECHNIQUE: Imaging protocol: Bilateral Screening tomosynthesis and 2D mammography including computer-aided detection (CAD) when performed. Patient kyphotic COMPARISON: 1. MG MM DIG SCREENING MAMM BI W/CAD 06/19/2022 4:47 PM 2. MG MM DIG MAMM BI DX W/CAD 12/30/2020 3:14 PM FINDINGS: MAMMOGRAPHY: Breast composition: The breasts are heterogeneously dense, which may obscure small masses. Mass: No new or suspicious masses Architectural distortion: None. Calcifications: No suspicious calcifications. Asymmetric density: None. Skin thickening: None. Axillary adenopathy: Limited evaluation due to the patient's inability to fully cooperate with the examination. IMPRESSION: No mammographic evidence of malignancy. Annual screening is recommended unless otherwise clinically indicated. ASSESSMENT: BI-RADS Category 1: Negative
== END 2023-07-17 23:59 | disposition home or self-care (01) ==
LOC: RAD 13:02
PROVIDERS: PCP Family Medicine; Visit Provider Family Medicine
DX: Z12.31 Encounter for screening mammogram for malignant neoplasm of breast (principal)
CPT/HCPCS: 77063; 77067

== ENCOUNTER 2023-10-03 09:29 | Day surgery (SDC) | payer MEDICARE, SELFPAY ==
[2023-10-02 10:44] VITALS: BMI 30.9
[2023-10-03 09:44] VITALS: BP 145/81; PULSE 80; RESP 18; TEMP 36.2; O2SAT 96
[2023-10-03] MEDS: LACTATED RINGERS 1000ML 1,000 ML 25 ML IV (09:53)
[2023-10-03 10:24] VITALS: O2SAT 96
[2023-10-03 10:35] VITALS: BP 109/53; PULSE 80; RESP 14; O2SAT 96
--- NOTE | 2023-10-03 10:35 | HMH.SCOPE ---
Procedure: Date: 10/03/23 Patient Date of :: 1940 Procedure Performed:: EGD and dilation Indications:: Dysphagia Performing Provider:: Dalton Ballesteros MD Referring Provider:: THAD Oden Sedation:: Propofol Procedure:: The gastroscope was gently passed through the incisoral orifice into the oral cavity and under direct visualization the esophagus was intubated. The endoscope was passed down the esophagus, through the stomach, and into the duodenum. Color, texture, mucosa, and anatomy of the esophagus, stomach, and duodenum were carefully examined with the scope. Findings:: Oropharynx: normal Esophagus: normal, small inlet patch noted in proximal esophagus, empiric dilation performed with 58F bougie dilator EG Junction: intact at 40 cm Cardia: normal Fundus: normal Body: normal Antrum: normal Duodenal bulb: normal Duodenum (second and third portion): normal Impression: Symptomatic dysphagia treated with empiric bougie dilation Inlet patch Recommendations:: Repeat dilation in about three years or so if clinically indicated Complications:: None Estimated blood obtained (mL): 0 Colonoscopy Component Colonoscopy Component Was a colonoscopy performed during today's procedure?: No
--- NOTE | 2023-10-03 10:41 | P.PNANES_ITS ---
[facility] Disclaimer: The information contained in this section may have been updated after the patient was seen, as this information can be updated by other users. Medical History Dysphagia Goiter Hypertrophy of both inferior nasal turbinates Hypothyroidism Deviated nasal septum Breast abscess Osteoarthritis Arrhythmia Heart murmur Renal insufficiency Sciatica History of malignant neoplasm Surgical History History of incision and drainage History of colonoscopy History of hysterectomy History of tonsillectomy H/O breast biopsy Family History Other Family history of abdominal aortic aneurysm Family history of cancer Family history of diabetes mellitus type II Family history of myocardial infarction Family history of stroke Social History (Updated 10/03/23 @ 09:55 by Julianna Lujan RN) Smoking Status: Never smoker alcohol intake: never counseling provided: provider counseling substance use type: denies use current occupational status: retired Travel in the last 8 weeks: None household members: none housing: house current occupational exposures/hazards: No caffeine: Yes [facility] Anesthesia Checklist Patient Identification Patient Identification: Arm Band Structural Data Admitted From: Home Planned Operative Procedure/s: EGD Consent for Planned Operative Procedure(s) Verified: Yes Verified Documents: Surgical Consent and History and Physical NPO Status Verified Time NPO: 00:00 Additional verifications Anesthesia Reactions: No Hx Blood Transfusions: No Blood Transfusion Reaction: No Airway Assessment Mallampati Score:: Class II C-Spine Mobility Assessed: Yes TMJ Mobility Assessed: Yes Dentition: Good Dentition Neurological Assessment Level of Consciousness: Awake, Alert and Appropriate Anesthesia Plan Anesthesia Risk discussed: Yes Anesthesia Plan: Verified ASA Class: III Anesthesia Type: MAC
[2023-10-03 10:45] VITALS: BP 113/44; PULSE 70; RESP 16; O2SAT 95
[2023-10-03 10:55] VITALS: BP 107/44; PULSE 69; RESP 16; O2SAT 98
[2023-10-03 11:05] VITALS: BP 133/63; PULSE 68; RESP 16; O2SAT 97
[2023-10-03 11:42] LABS: POC Glucose,Bedside 129 (70-110)
== END 2023-10-03 11:27 | disposition home or self-care (01) ==
PROVIDERS: PCP Family Medicine; Visit Provider Internal Medicine Gastroenterology
PROC: 0DJ08ZZ Inspection of Upper Intestinal Tract, Via Natural or Artificial Opening Endoscopic (ICD-10-PCS; CPT 43235; principal; 2023-10-03 10:30)
DX: R13.10 Dysphagia, unspecified (principal); N28.9 Disorder of kidney and ureter, unspecified
CPT/HCPCS: 43450; 82962; J2704; J7120

== ENCOUNTER 2023-12-18 10:07 | Outpatient (CLI) | payer MEDICARE, SELFPAY ==
--- NOTE | 2023-12-18 10:10 | US_ITS ---
PROCEDURE INFORMATION: Exam: US Left Breast, Complete Exam date and time: 12/18/2023 10:04 AM Age: 83 years old Clinical indication: Pain in the left breast lower inner quadrant and around nipple. History of cysts. TECHNIQUE: Imaging protocol: Complete ultrasound of all four quadrants of the left breast and the retroareolar regions, including ultrasound of the axilla when performed. COMPARISON: US BREAST LT COMPLETE 07/04/2021 1:16 PM FINDINGS: ULTRASOUND: Breast ultrasound findings: Scanning of the left breast in the lower inner quadrant at the site of pain demonstrates multiple simple and minimally complicated cysts of varying sizes, similar to prior studies. Throughout the remainder of the left breast, there are multiple subcentimeter cysts. There is no dominant or suspicious mass. No shadowing, distortion, or skin thickening. No axillary adenopathy. IMPRESSION: Sonographically, multiple cysts are visualized which could account for the patient's pain. However, correlation with a diagnostic left breast mammogram is recommended since the pain is new since screening mammogram dated 07/17/2023. ASSESSMENT: BI-RADS Category 0: Incomplete- Need Additional Imaging Evaluation.
== END 2023-12-18 23:59 | disposition home or self-care (01) ==
LOC: RAD 10:07
PROVIDERS: PCP Family Medicine; Visit Provider Family Medicine
DX: N64.4 Mastodynia (principal)
CPT/HCPCS: 76641

== ENCOUNTER 2024-01-21 14:15 | Outpatient (CLI) | payer MEDICARE, SELFPAY ==
--- NOTE | 2024-01-21 14:21 | MM_ITS ---
PROCEDURE INFORMATION: Exam: MG Left Diagnostic Breast Tomosynthesis Exam date and time: 01/21/2024 2:06 PM Age: 83 years old Clinical indication: Left-sided breast pain in the lower-inner quadrant and around the nipple. Cysts seen by ultrasound. TECHNIQUE: Imaging protocol: Left Diagnostic tomosynthesis and 2D mammography including computer-aided detection (CAD) when performed. Unilateral or bilateral exam. COMPARISON: 1. MG MM DIG SCREENING MAMM BI W/CAD 07/17/2023 1:00 PM 2. MG MM DIG SCREENING MAMM BI W/CAD 06/19/2022 4:47 PM FINDINGS: MAMMOGRAPHY: Breast composition: There are scattered areas of fibroglandular density. Breast mammogram findings: Surgical changes are stable. There are waxing and waning circumscribed round masses consistent with underlying cysts. No dominant or suspicious mass, unexplained distortion, or suspicious calcifications. Spot views of the area of pain demonstrate no mammographic abnormality. IMPRESSION: 1. Benign findings in the left breast. Pain is believed to be related to underlying cysts. Continued clinical follow-up is recommended. 2. Annual bilateral mammographic screening is recommended unless otherwise clinically indicated. ASSESSMENT: BI-RADS Category 2: Benign.
== END 2024-01-21 23:59 | disposition home or self-care (01) ==
LOC: RAD 14:16
PROVIDERS: PCP Family Medicine; Visit Provider Family Medicine
DX: R92.8 Other abnormal and inconclusive findings on diagnostic imaging of breast (principal)
CPT/HCPCS: 77061; 77065; G0279

== ENCOUNTER 2024-07-20 14:17 | Outpatient (CLI) | payer MEDICARE, SELFPAY ==
--- NOTE | 2024-07-20 14:24 | MM_ITS ---
PROCEDURE INFORMATION: Exam: US Right Breast, Complete US Left Breast, Complete MG Bilateral Diagnostic Breast Tomosynthesis Exam date and time: 07/20/2024 3:13 PM Age: 84 years old Clinical indication: Bilateral breast pain. TECHNIQUE: Imaging protocol: Complete ultrasound of all four quadrants of the right breast and the retroareolar regions, including ultrasound of the axilla when performed. Complete ultrasound of all four quadrants of the left breast and the retroareolar regions, including ultrasound of the axilla when performed. Bilateral Diagnostic tomosynthesis and 2D mammography including computer-aided detection (CAD) when performed. Unilateral or bilateral exam. COMPARISON: 1. US BREAST RT COMPLETE 12/30/2020 4:00 PM 2. US BREAST LT COMPLETE 12/30/2020 3:38 PM 3. MG MM DIG MAMM DX UNILAT LT CAD 01/21/2024 2:06 PM 4. MG MM DIG SCREENING MAMM BI W/CAD 07/17/2023 1:00 PM FINDINGS: MAMMOGRAPHY: Breast composition: The breasts are heterogeneously dense, which may obscure small masses. Breast mammogram findings: Bilateral full field CC and MLO tomosynthesis views were obtained. Mass: No suspicious masses. Architectural distortion: Postsurgical changes redemonstrated (. Calcifications: No suspicious calcifications. Asymmetric density: None. Skin thickening: None. Axillary adenopathy: None. ULTRASOUND: Breast ultrasound findings: Right breast ultrasound: Scattered benign simple cysts, the largest at 5 o'clock measuring 1.1 cm. No solid or suspicious masses. No abnormal lymph nodes in the axilla. Left breast ultrasound: Scattered benign simple cysts throughout the left breast, the largest measuring 1.1 cm at 5 o'clock. No solid or suspicious masses. No abnormal lymph nodes in the axilla. IMPRESSION: No finding to explain the patient's bilateral breast pain. Recommend clinical follow-up.There are no findings suspicious for malignancy. Annual mammographic screening is recommended unless otherwise clinically indicated. ASSESSMENT: BI-RADS Category 2: Benign.
== END 2024-07-20 23:59 | disposition home or self-care (01) ==
LOC: RAD 14:19
PROVIDERS: PCP Family Medicine; Visit Provider Family Medicine
DX: Z12.31 Encounter for screening mammogram for malignant neoplasm of breast (principal); N60.02 Solitary cyst of left breast; N60.01 Solitary cyst of right breast; R92.333 Mammographic heterogeneous density, bilateral breasts; N60.19 Diffuse cystic mastopathy of unspecified breast; N64.4 Mastodynia
CPT/HCPCS: 76641; 77063; 77067

== ENCOUNTER 2024-09-28 11:55 | Emergency (ER) | payer MEDICARE, SELFPAY ==
--- OUTSIDE RECORDS SUMMARY | 2024-06-04 11:45 | XMS_ITS ---
Author Organization [facility] Address [address] [place] [id number] Care Team Providers Care Hatchery Worker Name Role Phone Jessica Song Primary Care Provider [phone] Allergies Allergen (clinical drug ingredient) Drug/Non Drug Allergy documented on EMR Reaction Allergy Type Onset Date Status BAAL (uncoded) Unknown Allergy Activ e DIDIER EPHEDRINE NASA L DECONGES (uncoded) Unknown Allergy Active SEPTISOL (uncoded) Unknown Allergy A ctive TELOPAQUE TABLETS (uncoded) Unknown Allergy Active Balsam Cromwell-Rebuck Oil Unknown Drug Allergy Active Claritin itching Drug Allergy Active Gum Base (Gelatin) Unknown Drug Allergy Active bisacodyl Laxative Unknown Drug Allergy Active Adhesive Unknown Allergy Active Flu Virus Vaccine Unknown Drug Allergy Active Latex Latex Unknown Allergy Active Results Component Value Reference Range Notes P-Comprehensive Metabolic Pa ever (CMP) Reviewed date:06/10/2024 04:58:20 PM Interpretation:Na 134, cl 96, glu 102, creat 1.14, eGFR 47 Performing Lab: Notes/Report: Test performed by [facility] , [address], [place] [address] Jostin Bradley MD, Qa Manager CLIA: [id number] Sodium 134 135-145 mmol/L Potassium 4.5 3.5-5.3 mmol/L Chloride 96 97-108 mmol/L CO2 22 22-32 mmol/L Glucose 102 65-99 mg/dL BUN 21 8-23 mg/dL Creatinine 1.14 0.50-1.00 mg/dL Calcium 9.3 8.6-10.4 mg/dL eGFR by Creatinine 47 >59 mL/min/1.73m2 Protein 6.9 6.0-8.3 g/dL Albumin 4.3 3.5-5.3 g/dL Alkaline Phosphatase 85 35-121 IU/L ALT (SGPT) 14 <5-47 IU/L AST (SGOT) 20 <5-40 IU/L Bilirubin, Total 0.4 <0.2-1.2 mg/dL A/G Ratio 1.7 1.1-2.5 P-Hemoglobin A1C Reviewed date:06/10/2024 04:58:20 PM Interpretation:6.1 Performing Lab: Notes/Report: Test performed by [facility] [address] [place] [address] Dr[facility], [place] [address] Jostin Bradley MD, Qa Manager CLIA: [id number] Hemoglobin A1C 6.1 <5.7 % The following HbA1c ranges recommended by the [place] [employer] (ADA) may be used as an aid in the diagnosis of diabetes mellitus. HbA1c Suggested Diagnosis >=6.5% Diabetic 5.7% - 6.4% Pre-Diabetic <5.7% Non-Diabetic Estimated Average Glucose Reviewed date:06/10/2024 04:58:20 PM Interpretation:128 Performing Lab: Notes/Report: Test performed by [facility] [address] [place] [address] [address] , [place] [address] Jostin Bradley MD, Qa Manager CLIA: [id number] Estimated Average Glucose (eAG) 128 Estimated Average Glucose (eAG) is calculated using the equation eAG = (28.7 x HbA1c) - 46.7 based on the guidelines established by the ADA. If the patient has certain diseases including kidney disease, sickle cell anemia, thalassemia, or is taking medications such as dapsone, erythropoietin, or iron, eAG should not be evaluated. REASON FOR VISIT follow up Medications Medication SIG (Take, Route, Frequency, Duration) Notes Start Date End Date Status Gabapentin 300 MG 1 cap(s) orally 3 ti mes a day; Duration: 30 days 05/18/2024 Active Atorvastatin Calcium 20 MG TAKE 1 TABLET BY MOUTH EVERY DAY AT BEDTIME; Duration: 90 Active traMADol-Acetaminophen 37.5-325 MG 1 tab(s) orally Four times a day as needed 03/24/2024 Active Synthroid 50 MCG TAKE 1 TABLET BY PHILIP TH DAILY IN THE MORNING ON AN EMPTY STOMACH; Duration: 90 Active metFORMIN HCl 500 MG TAKE 1 TABLET BY MO UTH DAILY WITH A MEAL; Duration: 30 Active ZyrTEC 10 MG 1 TAB ORALLY ONCE DAILY Active Co Q10 100MG 1 TAB ORAL ONCE DAYO Y AT BEDTIME 12/26/2010 Active Triamterene-HCTZ 37.5-25 MG 1 tab(s) orally once a day; Duration: 90 days Active Bisoprolol Fumarate 5 MG 1/2 Orally Once a day; Duration: 90 days 02/17/2024 Active Aspir-Low 81 MG 1 tab(s) orally once a day Active Fluticasone Propionate 50 MCG/ACT 2 spray(s) intranasally once a day; Duration: 30 Not-Aniket ing Problems Problem Type SNOMED Code ICD Code Onset Dates Problem Status W/U Status Risk Notes Problem Type 2 diabetes mellitus (11281084) Type 2 diabetes mellitus (E11.9) Active confirmed Vital Signs Blood pressure systolic 120 mm Hg 06/05/19 25 Blood pressure diastolic 68 mm Hg 025 Heart Rate 60 /min 06/04/2024 Height 66 in 06/04/2024 Weight 168.2 lbs 06/04/2024 BMI 27.15 kg/m2 06/04/2024 Encounters Encounter Location Date Provider Diagnosis [facility] [address] [phone] 06/04/2024 Jessica Song Essential hypertensi on I10 ; Acquired hypothyroidism E03.9 ; Fibrocystic disease of left breast N60.12 ; Arthropathy of both knees M17.0 ; Type 2 diabetes mellitus E11.9 ; Mixed hyperlipidemia E78.2 and BMI 27.0-27.9,adult Z68.27 Assessments Encounter Date Diagnosis (ICD Code) Assessment Notes Treatment Notes Treatment Clinical Notes Section Notes 06/04/2024 Essential hypertension (ICD-10 - I10) continue current therapy 06/04/2024 Acquired hypothyroidism (ICD-10 - E03.9) 06/04/2024 Fibrocystic disease of left breast (ICD-10 - N60.12) 06/04/2024 Arthropathy of both knees (ICD-10 - M17.0) 06/04/2024 Type 2 diabetes mellitus (ICD-10 - E11.9) 06/04/2024 Mixed hyperlipidemia (ICD-10 - E78.2) 06/04/2024 BMI 27.0-27.9,adult (ICD-10 - Z68.27) Plan Of Treatment Treatment Notes Assessment Notes Essential hypertension continue current therapy Next Appt Details Follow Up: 3 Months, Reason: Provider Name:Jessica Perea er, 01/18/2025 11:45:00 AM, [address] [facility], [address], [place], [phone], Progress Notes * COPJEFF RODRIGUEZDOB:1940 (84 yo F)Acc No.[id number]:06/04/2024 Progress Notes Patient: JEFF GARCIA Provider: Jessica Song M.D. :1940 A ge:84 Y S ex:Female Date:06/04/2024 Address:[address] [place], [place] [id number] Subjective: * Chief Complaints: * 1 . Follow up. * HPI: C ardiology: The pt is here for a check up on Hypertension. Pt states her BP is running in the 130-140's/60-70's with occasional elevation to 150-160's/80's. Pt also c/o some pain , pressure and itching in the right ear over the past 2 weeks. Denies : Chest Pain. D enies : Short of Breath. D enies : Dizziness. D enies : Palpitations. * ROS: D ERMATOLOGY: no R favian. n o H brooks. G ASTROENTEROLOGY: no N ausea. n o V omiting. n o D iarrhea.? U ROLOGY: no D ifficulty urinating. n o B lood in urine. * Medical History: H YPOTHYROIDISM, HEP A & B, Rheumatoid arthritis, Irritable bowel syndrome, Fibrocystic disease, Hypertension, Endometrial Carcinoma, left Spigelian hernia, Dx CT 08/2018, Covid Vaccine x2 - April 2020, Moderna, Negative COVID 19 PCR, 03/08/2021, COVID 19 BOOSTER 2022, COVID 19 BOOSTER 10/31/23, Randy. * Surgical History: t onsillectomy , adenoidectomy , splenectomy , fatty tumor removed from right rib cage , cyst removal from lower back , cyst removal left breast , mastectomy 1974, sinus surgery, took out a cyst and corrected her broken nose 03-03-09, US of GB, some sludge 09/28/2011, cricopharyngeal dilatation, vocal cord biopsy with leukoplakia , vaginal polypectiomy 02/17/16, hysterectomy, endometrial carcinoma, Dr. Russell [facility] 04/18/16, breast biopsy Left breast, Dr. Morgan, [facility] 05/08/16, polyp removal after colonoscopy 08/23/16, HIDA scan - sludge 07/04/16, tubular adenomas of colon, Dr. Morgan 03/20/17, hyperplastic polyp 2019, EGD with dilatation, Dr. Ballesteros 10/03/2023. * Hospitalization/Major Diagno stic Procedure: c olonoscopy 08/23/16. * Family History: F ather: 74 yrs, [place], diverticulitis, HTN, diagnosed with Hypertension, Heart Disease, Mental Illness. M other: 72 yrs, alzheimer, diagnosed with Mental Illness. P aternal Grand Father: cancer. P aternal Grand Mother: cancer. M aternal Grand Father: cancer.?Maternal Grand Mother: cancer. S iblings: cancer, diagnosed with Diabetes, Hypertension, Heart Disease, Stroke, Cancer. C hildren: alive. 3 brother(s) , 2 sister(s) . 3 son(s) - healthy. . 2 brothers, 1 sister , Liver Cancer\\n. * Social History: C URRENT TOBACCO USE S moking Status: P atient does NOT smoke, S econd hand smoke exposure: Y es as a child, father was a 'chain' smoker. C affeine: yes, frequency:. Exercise: yes. Home smoke detector use: yes. Marital Status: Single, . Occupation: retired nurse. Past smoking status: never smoked. Recreational drug use: no. Alcohol: Yes, occasional. * Medications: T aking Aspir-Low 81 MG Tablet Delayed Release 1 tab(s) orally once a day , Taking ZyrTEC 10 MG 1 TAB ORALLY ONCE DAILY , Taking Co Q10 100MG 1 TAB ORAL ONCE DAILY AT BEDTIME , Taking Triamterene-HCTZ 37.5-25 MG Tablet 1 tab(s) orally once a day , Taking Bisoprolol Fumarate 5 MG Tablet 1/2 Orally Once a day , Taking Atorvastatin Calcium 20 MG Tablet TAKE 1 TABLET BY MOUTH EVERY DAY AT BEDTIME , Taking traMADol-Acetaminophen 37.5-325 MG Tablet 1 tab(s) orally Four times a day as needed , Taking Synthroid 50 MCG Tablet TAKE 1 TABLET BY MOUTH DAILY IN THE MORNING ON AN EMPTY STOMACH , Taking metFORMIN HCl 500 MG Tablet TAKE 1 TABLET BY MOUTH DAILY WITH A MEAL , Taking Gabapentin 300 MG Capsule 1 cap(s) orally 3 times a day , Not- Taking Fluticasone Propionate 50 MCG/ACT Suspension 2 spray(s) intranasally once a day , Discontinued Clotrimazole-Betamethasone 1-0.05 % Cream 1 alex applied topically 2 times a day , Discontinued Fluticasone Propionate 50 MCG/ACT Suspension 2 spray(s) intranasally once a day , Discontinued Clotrimazole 1 % Cream 1 alex applied topically 2 times a day , Medication List reviewed and reconciled with the patient * Allergies: F bhargavi Virus Vaccine, TELOPAQUE TABLETS, Gum Base (Gelatin), Balsam Rip-Rebuck Oil, Laxative, DIDIER EPHEDRINE NASAL DECONGES, SEPTISOL, Adhesive, BAAL, Latex, Claritin: itching. Objective: * Vitals: W t:168.2, Temp:98.4, BP:120/68, HR:60, O2 Sat:97% on RA, Nurse:AMANDO, Ht: 66, BMI:27.15. * Examination: G eneral Examination: General Appearance: N AD. H EENT: s clera and conjunctiva clear, PERRLA. O ral cavity: n o lesions, mucosa moist and WNL, no erythema. N parish: s upple, no lymphadenopathy. C hest: n ormal shape and expansion. H eart: R SR, S4 present, no ectopics. L ungs: c lear to auscultation. A bdomen: s oft and nontender, no organomegaly or masses. Her tenderness is RUQ. N eurologic Exam: u nsteady gait, walks using cane. S kin: s eborrheic lesions of the back. P eripheral pulses: n ormal. B ack: mild dorsal kyphosis. E xtremities: n o l eg edema, osteoarthritic changes of the knees, varicosities of the legs, some osteoarthritic change of joints of hands, Heberdon's node. G enitalia: not examined. Assessment: * Assessment: 1. E ssential hypertension - I10 (Primary) 2 . A cquired hypothyroidism - E03.9 3 . F ibrocystic disease of left breast - N60.12 4 . A rthropathy of both knees - M17.0 5 . T ype 2 diabetes mellitus - E11.9 & #160; 6 . M ixed hyperlipidemia - E78.2 7 . B UT 27.0-27.9,adult - Z68.27? Plan: * Treatment: Value Reference Range A /G Ratio 1.7 1.1-2.5 - * A lbumin 4.3 3.5-5.3 - g/dL * A lkaline Phosphatase 85 35-121 - IU/L * A LT (SGPT) 14 <5-47 - IU/L * A ST (SGOT) 20 <5-40 - IU/L * B ilirubin, Total 0.4 <0.2-1.2 - mg/dL * B UN 21 8-23 - mg/dL * C alcium 9.3 8.6-10.4 - mg/dL * C hloride 96 L 97-108 - mmol/L * C O2 22 22-32 - mmol/L * C reatinine 1.14 H 0.50-1.00 - mg/dL * G lucose 102 H 65-99 - mg/dL * P otassium 4.5 3.5-5.3 - mmol/L * S odium 134 L 135-145 - mmol/L * P rotein 6.9 6.0-8.3 - g/dL * e GFR by Creatinine 47 L >59 - mL/min/1.73m2 * Ligia Wheeler 06/10/2024 04: 58:13 PM > See phone encounter Notes: continue current therapy??2.?Type 2 diabetes mellitus?LAB: P-Hemoglobin A1C (Collection Date & Time - 06/04/2024 03:10 PM)?6.1* Value Reference Range H emoglobin A1C 6.1 H <5.7 - % * Ligia Wheeler 06/10/2024 04: 58:13 PM > See phone encounter * Labs: * L ab: Estimated Average Glucose (Collection Date & Time - 06/04/2024 03:10 PM) 1 28 Value Reference Range E stimated Average Glucose 128 - mg/dL * [facility], IT support 06/06/2024 09:30:07 : This order was created by the Interface. Ligia Wheeler 06/10/2024 04:58:13 PM > See phone encounter * Procedure Codes: G 2211 Complex e/m visit add on, 3074F SYST BP LT 130 MM HG, 3078F DIAST BP < 80 MM HG, 3044F HG A1C LEVEL LT 7.0% * Follow Up: 3 Months * Images: Billing Information: * Visit Code: 23602 Office Visit, Est Pt., Level 4. * Procedure Codes: G2211 Complex e/m visit add on. 3074F SYST BP LT 130 MM HG. 3078F DIAST BP < 80 MM HG. 3044F HG A1C LEVEL LT 7.0%. * Electronic signature of Jessica Song MD on 09/28/2024 at 12:12 PM EDT Sign off status: Pending * Provider: Jessica Song M.D. Date: 0 06/04/2024 Generated for Josephi cinthya/Fredy/eTransmitting on: 0 09/28/2024 12:12 PM EDT History and Physical Notes * HPI (History of Present Illness) Category Sub-Category Detail Notes Category Not es Cardiology Short of Breath Chest Pain Palpitations Dizziness Examination Category Sub-Category Detail Notes Category Not es General Examination HEENT: sclera and conjunctiv a clear, PERRLA Heart: RSR, S4 present, no ectopics Lungs: clear to auscultatio n Abdomen: soft and nontender, no organomegaly or masses. Her tenderness is RUQ Extremities: no leg edema, osteoa rthritic changes of the knees, varicosities of the legs, some osteoarthritic change of joints of hands, Heberdon's node General Appearance: NAD Skin: seborrheic lesions o f the back Neurologic Exam: unsteady gait, walks using cane Neck: supple, no lymphaden opathy Oral cavity: no lesions, mucosa m oist and WNL, no erythema Peripheral pulses: normal Back: mild dorsal kyphosis Genitalia: not examined Chest: normal shape and exp ansion
--- OUTSIDE RECORDS SUMMARY | 2024-09-14 07:30 | XMS_ITS ---
Author Organization [facility] Address [address] [place] [id number] Care Team Providers Care Forensic Audit Expert Name Role Phone Jessica Song Primary Care Provider Allergies Allergen (clinical drug ingredient) Drug/Non Drug Allergy documented on EMR Reaction Allergy Type Onset Date Status BAAL (uncoded) Unknown Allergy Activ e DIDIER EPHEDRINE NASA L DECONGES (uncoded) Unknown Allergy Active SEPTISOL (uncoded) Unknown Allergy A ctive TELOPAQUE TABLETS (uncoded) Unknown Allergy Active Balsam Rip-Olanta Oil Unknown Drug Allergy Active Claritin itching Drug Allergy Active Gum Base (Gelatin) Unknown Drug Allergy Active bisacodyl Laxative Unknown Drug Allergy Active Adhesive Unknown Allergy Active Flu Virus Vaccine Unknown Drug Allergy Active Latex Latex Unknown Allergy Active Results Component Value Reference Range Notes Glycohemoglobin A1c (in hous e) Reviewed date:09/17/2024 05:30:20 PM Interpretation:Normal Performing Lab: Notes/Report: Normal glycohemoglobin 5.9% 5 - 6.5 % P-Basic Metabolic Panel (BMP ) Reviewed date:09/17/2024 05:30:20 PM Interpretation:Normal Performing Lab: Notes/Report: Test performed by [employer] [facility] , [address], [place] [address] Jostin Bradley MD, [employer] CLIA: [id number] Sodium 138 135-145 mmol/L Potassium 4.3 3.5-5.3 mmol/L Chloride 101 97-108 mmol/L CO2 27 20-32 mmol/L Glucose 100 65-99 mg/dL BUN 21 8-23 mg/dL Creatinine 0.90 0.50-1.00 mg/dL Calcium 9.8 8.6-10.4 mg/dL eGFR by Creatinine 63 >59 mL/min/1.73m2 P-TSH Reviewed date:09/17/2024 05:30:20 PM Interpretation:Normal Performing Lab: Notes/Report: Test performed by [employer] [address] [place] [address] , [address], [place] [address] Jostin Bradley MD, [employer] CLIA: [id number] TSH 1.02 0.43-5.25 mU/L REASON FOR VISIT 3 months, Needs labs & bone density screening Medications Medication SIG (Take, Route, Frequency, Duration) Notes Start Date End Date Status Gabapentin 300 MG 1 cap(s) orally 3 ti mes a day; Duration: 30 days 07/30/2024 Active Bisoprolol Fumarate 5 MG TAKE 1/2 TABLET BY MOUTH DAILY; Duration: 90 Active Triamterene-HCTZ 37.5-25 MG 1 tab(s) orally once a day; Duration: 90 days Active Synthroid 50 MCG TAKE 1 TABLET BY PHILIP TH DAILY IN THE MORNING ON AN EMPTY STOMACH; Duration: 90 Active Fluticasone Propionate 50 MCG/ACT 2 spray(s) intranasally once a day; Duration: 30 Not-Aniket ing traMADol-Acetaminophen 37.5-325 MG 1 tab(s) orally Four times a day as needed 03/24/2024 Active Atorvastatin Calcium 20 MG TAKE 1 TABLET BY MOUTH EVERY DAY AT BEDTIME; Duration: 90 Active metFORMIN HCl 500 MG TAKE 1 TABLET BY MO UTH DAILY WITH A MEAL; Duration: 90 days Active Co Q10 100MG 1 TAB ORAL ONCE DAYO Y AT BEDTIME 12/26/2010 Active ZyrTEC 10 MG 1 TAB ORALLY ONCE DAILY Active Aspir-Low 81 MG 1 tab(s) orally once a day Active Vital Signs Blood pressure systolic 120 mm Hg 09/15/19 25 Blood pressure diastolic 70 mm Hg 025 Heart Rate 66 /min 09/14/2024 Height 66 in 09/14/2024 Weight 164.8 lbs 09/14/2024 BMI 26.6 kg/m2 09/14/2024 Encounters Encounter Location Date Provider Diagnosis [facility] [address] [facility] [address] [place] [id number] 09/14/2024 Jessica Song Essential hypertensi on I10 ; Acquired hypothyroidism E03.9 ; Type 2 diabetes mellitus E11.9 and BMI 26.0-26.9,adult Z68.26 Assessments Encounter Date Diagnosis (ICD Code) Assessment Notes Treatment Notes Treatment Clinical Notes Section Notes 09/14/2024 Essential hypertension (ICD-10 - I10) 09/14/2024 Acquired hypothyroidism (ICD-10 - E03.9) 09/14/2024 Type 2 diabetes mellitus (ICD-10 - E11.9) 09/14/2024 BMI 26.0-26.9,adult (ICD-10 - Z68.26) Plan Of Treatment Next Appt Details Follow Up: 4 Months, Reason: Provider Name:Jessica Perea er, 01/18/2025 11:45:00 AM, [address] [facility] [address] [facility], [address], [place], [phone], Progress Notes * JEFF DOMINGUEZDOB:1940 (84 yo F)Acc No.[id number]:09/14/2024 Progress Notes Patient: Emeka JEFF SIMMONS Provider: Jessica Song M.D. :1940 A ge:84 Y S ex:Female Date:09/14/2024 Address:[address] [place], [place] [id number] Subjective: * Chief Complaints: * 1 . 3 months. 2. Needs labs & bone density screening. * HPI: H PI: 84 year old female presents with c/o Patient is here today for? P t sts she also has issues with her hair falling out as well. C ardiology: c/o Dizziness P t sts she does have occasional dizziness at times. D ermatology: c/o skin lesion P t sts she also has a spot on her back that she would like looked at as well and sts her son told her it was starting to turn black. c/o redness P t is here today for a 3 month check up. Pt sts she would like her rt elbow looked at as she fell a couple of days before the 21 of August and sts that everything healed except the spot on her elbow. G astroenterology: Abdominal Pain P t sts a couple of weeks ago she also had a lot of pain in her upper quadrant area all the way across and sts it is still sore and she is unsure as to why. C onstitutional: c/o weight loss P t sts she has been losing weight as well and sts she is worried about that. * ROS: D ERMATOLOGY: no R favian. [...] polypectiomy 02/17/16, hysterectomy, endometrial carcinoma, Dr. Russell [facility] 04/18/16, breast biopsy Left breast, Dr. Morgan, [facility] 05/08/16, polyp removal after colonoscopy 08/23/16, HIDA scan - sludge 07/04/16, tubular adenomas of colon, Dr. Morgan 03/20/17, hyperplastic polyp 2019, EGD with dilatation, Dr. Ballesteros 10/03/2023. * Hospitalization/Major Diagno stic Procedure: c olonoscopy 08/23/16. * Family History: F ather: 74 yrs, SC, diverticulitis, HTN, diagnosed with Hypertension, Mental Illness, Heart Disease. M other: 72 yrs, alzheimer, diagnosed with Mental Illness. P aternal Grand Father: cancer. P aternal Grand Mother: cancer. M aternal Grand Father: cancer.?Maternal Grand Mother: cancer. S iblings: cancer, diagnosed with Cancer, Hypertension, Diabetes, Stroke, Heart Disease. Emeka acuna: alive. 3 brother(s) , 2 sister(s) . [...] ORAL ONCE DAILY AT BEDTIME , Taking Atorvastatin Calcium 20 MG Tablet TAKE 1 TABLET BY MOUTH EVERY DAY AT BEDTIME , Taking traMADol-Acetaminophen 37.5-325 MG Tablet 1 tab(s) orally Four times a day as needed , Taking metFORMIN HCl 500 MG Tablet TAKE 1 TABLET BY MOUTH DAILY WITH A MEAL , Taking Synthroid 50 MCG Tablet TAKE 1 TABLET BY MOUTH DAILY IN THE MORNING ON AN EMPTY STOMACH , Taking Triamterene-HCTZ 37.5-25 MG Tablet 1 tab(s) orally once a day , Taking Bisoprolol Fumarate 5 MG Tablet TAKE 1/2 TABLET BY MOUTH DAILY , Taking Gabapentin 300 MG Capsule 1 cap(s) orally 3 times a day , Not- Taking Fluticasone Propionate 50 MCG/ACT Suspension 2 spray(s) intranasally once a day , Medication List reviewed and reconciled with the patient * Allergies: F bhargavi Virus Vaccine, TELOPAQUE TABLETS, Gum Base (Gelatin), Balsam Pella-Olanta Oil, Laxative, DIDIER EPHEDRINE NASAL DECONGES, SEPTISOL, Adhesive, BAAL, Latex, Claritin: itching. Objective: * Vitals: W t: 164.8, Temp: 98.6, BP: 120/70, HR: 66, O2 Sat: 96% on RA, Nurse: [facility], Ht: 66, BMI:26.6. * Examination: G eneral Examination: General Appearance: [...] S kin: s eborrheic lesions of the back, and 2 giant comedones. P eripheral pulses: n ormal. B ack: mild dorsal kyphosis. E xtremities: 2 +? leg edema, osteoarthritic changes of the knees, varicosities of the legs, some osteoarthritic change of joints of hands, Heberdon's node. G enitalia: not examined. Assessment: * Assessment: 1. E ssential hypertension - I10 (Primary) 2 . A cquired hypothyroidism - E03.9 3 . T ype 2 diabetes mellitus - E11.9 4 . B SC 26.0-26.9,adult - Z68.26 Plan: * Treatment: Value Reference Range B UN 21 8-23 - mg/dL * C alcium 9.8 8.6-10.4 - mg/dL * C hloride 101 97-108 - mmol/L * C O2 27 20-32 - mmol/L * C reatinine 0.90 0.50-1.00 - mg/dL * G lucose 100 H 65-99 - mg/dL * P otassium 4.3 3.5-5.3 - mmol/L * S odium 138 135-145 - mmol/L * e GFR by Creatinine 63 >59 - mL/min/1.73m2 * Anya Casey 09/17/2024 05 :30:09 PM EDT > Left voicemail informing of normal lab results 2.?Acquired hypothyroidism?LAB: P-TSH (Collection Date & Time - 09/14/2024 11:50 AM)?Normal* Value Reference Range T SH 1.02 0.43-5.25 - mU/L * Anya Casey 09/17/2024 05 :30:09 PM EDT > Left voicemail informing of normal lab results 3.?Type 2 diabetes mellitus?LAB: Glycohemoglobin A1c (in house) (Collection Date & Time - 09/14/2024)? Normal* Value Reference Range g lycohemoglobin 5.9% 5 - 6.5 % * Anya Caesy 09/14/2024 01 :05:15 PM EDT > Anya Casey 09/17/2024 05:30:09 PM EDT > Left voicemail informing of normal lab results * Procedure Codes: G 2211 Complex e/[place] [address] GLYCATED HEMOGLOBIN TEST, Modifiers: QW , 3044F HG A1C LEVEL LT 7.0%, 1036F TOBACCO NON-USER, G8420 BMI<30 AND >=22 CALC & DOCU, G8950 PREHTN/HTN BP DOC INDCD F/U DOC, G8752 MOST RECENT SYSTOLIC BP < 140MM HG, G8754 MOST RECENT DIASTOLIC BP < 90MM HG * Follow Up: 4 Months * Images: Billing Information: * Visit Code: 89013 Office Visit, Est Pt., Level 4. * Procedure Codes: G2211 Complex e/[place]. [address] GLYCATED HEMOGLOBIN TEST. Modifiers: QW 3044F HG A1C LEVEL LT 7.0%. 1036F TOBACCO NON-USER. G8420 BMI<30 AND >=22 CALC & DOCU. G8950 PREHTN/HTN BP DOC INDCD F/U DOC. G8752 MOST RECENT SYSTOLIC BP < 140MM HG. G8754 MOST RECENT DIASTOLIC BP < 90MM HG. * Electronic signature of Jessica Song MD on 09/28/2024 at 12:11 PM EDT Sign off status: Pending * Provider: Jessica Song M.D. Date: 0 09/14/2024 Generated for Jorge mendes/Fredy/eTransmitting on: 0 09/28/2024 12:11 PM EDT History and Physical Notes * HPI (History of Present Illness) Category Sub-Category Detail Notes Category Not es Dermatology redness Pt is here today for a 3 month check up. Pt sts she would like her rt elbow looked at as she fell a couple of days before the 21 of August and sts that everything healed except the spot on her elbow skin lesion Pt sts she also has a spot on her back that she would like looked at as well and sts her son told her it was starting to turn black Cardiology Dizziness Pt sts she does have occasional dizziness at times Gastroenterology Abdominal Pain Pt sts a couple of weeks ago she also had a lot of pain in her upper quadrant area all the way across and sts it is still sore and she is unsure as to why Constitutional weight loss Pt sts she has b een losing weight as well and sts she is worried about that HPI Patient is here today for Pt sts she also has issues with her hair falling out as well Examination Category Sub-Category Detail Notes Category Not es General Examination HEENT: sclera and conjunctiv a clear, PERRLA Heart: RSR, S4 present, no ectopics Lungs: clear to auscultatio n Abdomen: soft and nontender, no organomegaly or masses. Her tenderness is RUQ Extremities: 2+ leg edema, osteoa rthritic changes of the knees, varicosities of the legs, some osteoarthritic change of joints of hands, Heberdon's node General Appearance: NAD Skin: seborrheic lesions o f the back, and 2 giant comedones Neurologic Exam: unsteady gait, walks using cane Neck: supple, no lymphaden opathy Oral cavity: no lesions, mucosa m oist and WNL, no erythema Peripheral pulses: normal Back: mild dorsal kyphosis Genitalia: not examined Chest: normal shape and exp ansion
[2024-09-28] VITALS (7 sets, daily range): BP systolic 101–116; BP diastolic 48–58; PULSE 63–74; RESP 14–16; TEMP 36.9; O2SAT 95–98; BMI 28.1
--- NOTE | 2024-09-28 12:01 | HMH.EDGENADL ---
Discharge Plan Disposition Patient Disposition: Home, Self-Care Prescriptions Prescriptions: No Action triamterene-hydrochlorothiazid 37.5-25 mg tablet 0.5 tab PO DAILY 90 Days Qty: 45 metoprolol succinate 25 mg tablet extended release 24 hr 25 mg PO DAILY 30 Days Qty: 30 metformin 500 mg tablet PO Patient Comments: TAKE 1 TABLET BY MOUTH DAILY WITH A MEAL bisoprolol fumarate 5 mg tablet PO Patient Comments: TAKE 1/2 TABLET BY MOUTH DAILY aspirin 81 mg tablet,delayed release (DR/EC) 81 mg PO DAILY cetirizine [Zyrtec] 10 mg capsule 10 mg PO DAILY levothyroxine [Synthroid] 50 mcg tablet 50 mcg PO DAILY hkuayfdj-ydk-CJ-lycopen-lutein [Centrum Silver] 0.4-300-250 mg-mcg-mcg tablet 1 tab PO QAM coenzyme Q10 [CoQ-10] 100 mg capsule 100 mg PO DAILY atorvastatin [Lipitor] 20 mg tablet 20 mg PO DAILY tramadol-acetaminophen 37.5-325 mg tablet 1 tab PO DAILY PRN (Reason: pain) gabapentin 300 MG capsule 300 mg PO TID calcium carbonate-vitamin D3 1 EACH tablet 1 each PO DAILY Referrals Follow up/Referrals: Efra Song MD [Primary Care Provider, Medical] - See instructions Activity Restrictions/Add. Instructions Additional Instructions/Restrictions: You likely have a sprain of your right wrist and deep bruising. You can take Tylenol and ibuprofen to help with your symptoms. You are being provided a splint to help with comfort. Wear this as needed for comfort. You can use ice packs and heating pads on the area as well to help reduce swelling and control symptoms. Follow-up with your primary care physician if symptoms do not improve. If you develop any new or worsening symptoms, or if you become concerned for your health for any reason, return to the emergency department for evaluation Clinical Impressions Clinical Impression: Right wrist sprain, Hand pain, right Print Language Print Language: Armenian Discharge ED Provider: Kevin Dominguez Adult HPI General Chief complaint: Fall Stated complaint: AO- Fall 09/27- Pain, swelling,bruising R hand Time Seen by Provider: 09/28/24 12:01 Mode of Arrival: Ambulatory Source of Information: Patient Limitations: No Limitations History of Present Illness HPI narrative: Sandra Cohen is an 84-year-old female with a history of hypertension, recently diagnosed diabetes who presents the emergency department for complaints of pain, swelling to her right hand and wrist area after a fall. Patient states that last evening, she tripped on an air vent and fell forward. She braced herself with her right hand outstretched. She states that her thumb bent backwards. She did not hit her head or lose consciousness. She had some pain last night took Tylenol, however the pain woke her up this morning. She noticed some increased swelling at the base of her thumb and first finger as well as into her wrist with shooting pain up her forearm. She is concerned she may have broken a bone. She denies any other injuries or trauma. Related Data Home Medications ?Medication ?Instructions ?Recorded ?Confirmed aspirin 81 mg tablet,delayed 81 mg PO DAILY heart health 03/06/17 04/15/24 release atorvastatin 20 mg tablet (Lipitor) 20 mg PO DAILY Cholesterol 03/06/17 04/15/24 cetirizine 10 mg capsule (Zyrtec) 10 mg PO DAILY allergies 03/06/17 04/15/24 coenzyme Q10 100 mg capsule 100 mg PO DAILY Supplement 03/06/17 04/15/24 (CoQ-10) levothyroxine 50 mcg tablet 50 mcg PO DAILY thyroid 03/06/17 04/15/24 (Synthroid) dmplvadc-oyc-ogfty acid 0.4 1 tab PO QAM Supplement 03/06/17 04/15/24 mg-lycopene 300 mcg-lutein 250 mcg tablet (Centrum Silver) calcium 250 mg (as 1 each PO DAILY Supplement 03/18/17 04/15/24 carbonate)-vitamin D3 3.125 mcg (125 unit) tablet gabapentin 300 mg capsule 300 mg PO TID neck disc pain 03/18/17 04/15/24 triamterene 37.5 0.5 tab PO DAILY High blood 10/30/17 04/15/24 mg-hydrochlorothiazide 25 mg tablet pressure 90 days #45 tabs metoprolol succinate 25 mg 25 mg PO DAILY bp 30 days #30 tabs 04/30/18 04/15/24 tablet,extended release 24 hr tramadol 37.5 mg-acetaminophen 325 1 tab PO DAILY PRN pain 05/18/21 04/15/24 mg tablet bisoprolol fumarate 5 mg tablet mg PO 04/15/24 04/15/24 metformin 500 mg tablet mg PO 04/15/24 04/15/24 Allergies Allergy/AdvReac Type Severity Reaction Status Date / Time gum mastic (GUM MASTIC) Allergy Intermediate I-RASH Verified 04/15/24 11:50 latex (LATEX) Allergy Mild Verified 04/15/24 11:50 adhesive tape (ADHESIVE TAPE) Allergy Unknown Verified 04/15/24 11:50 montelukast (MONTELUKAST) Allergy Unknown I-ITCHING Verified 04/15/24 11:50 flu vaccine Allergy Unknown Uncoded 04/15/24 11:50 PFSH PFS Disclaimer: The information contained in this section may have been updated after the patient was seen, as this information can be updated by other users. Medical History Dysphagia Goiter Hypertrophy of both inferior nasal turbinates Hypothyroidism Deviated nasal septum Breast abscess Osteoarthritis Arrhythmia Heart murmur Renal insufficiency Sciatica History of malignant neoplasm Surgical History History of incision and drainage History of colonoscopy History of hysterectomy History of tonsillectomy H/O breast biopsy Family History Other Family history of abdominal aortic aneurysm Family history of cancer Family history of diabetes mellitus type II Family history of myocardial infarction Family history of stroke Social History Smoking Status: Never smoker alcohol intake: never counseling provided: provider counseling substance use type: denies use current occupational status: retired Travel in the last 8 weeks?: None household members: none housing: house current occupational exposures/hazards: No caffeine: Yes Have you lived/traveled outside [place] in past 30 days?: No Contact w/someone who lives/traveled outside US past 30 days?: No Exposure to someone with infectious disease in past 14 days?: No Do you have a fever (greater than 100.4 F or 38 C)?: No Have you tested positive for COVID-19?: No Exposed to someone with COVID-19 in past 14 days?: No Do you have a sore throat?: No Do you have a cough?: No Do you have any weakness?: No Do you have any diarrhea?: No Are you experiencing any unusual bleeding?: No Do you have any muscle aches/pain?: Yes Do you have any abdominal pain?: No Are you experiencing loss of taste or smell?: No Other Medical History Have you received the Flu Vaccine for this season: No Have you received the Pneumonia Vaccine: Yes ROS Obtained: Yes Systems reviewed as appropriate & no additional complaints except as documented Physical Exam General General appearance: alert and in no apparent distress Head Head exam: atraumatic Eye Eye exam: Present normal appearance ENT ENT exam: Present normal external ear exam Neck Neck exam: Present full ROM Chest Chest inspection: Present symmetric chest wall rise Respiratory Respiratory exam: Present normal lung sounds bilaterally; Absent respiratory distress Cardiovascular Cardiovascular exam: Present regular rate and normal rhythm Abdominal Exam Abdominal exam: Present soft; Absent tenderness or guarding Extremities Exam Extremities exam: Present normal inspection Expanded Upper Extremity Exam Right: Comment: RUE: Tenderness and swelling at the base of the right thumb and first digit. Flexor and extension function intact to all fingers. Tenderness over the distal wrist with swelling in this area. Full range of motion at the elbow and shoulder. Limited range of motion at the wrist secondary to pain. Sensation grossly intact. Less than 2-second capillary refill. Back Exam Back exam: Present normal inspection Neurological Exam Neurological exam: Present alert and oriented X3 Psychiatric Psychiatric exam: Present normal affect Skin Skin exam: Present warm and dry Medical Decision Making Medical Records Screening: Per USPSTF and CDC recommendations, given the prevalence of disease in our region, it is our hospital?s policy to screen for HIV and viral Hepatitis for all patients aged 18 and over and those with ongoing risk factors. Mehul Inquiry Pt receiving controlled substance: No Vital Signs: 09/28/24 12:08 09/28/24 12:20 09/28/24 12:30 Temperature 98.4 F Temperature Source Oral Pulse Rate 65 65 Pulse Rate [Right Radial] 74 Respiratory Rate 16 Blood Pressure 106/52 L 116/56 L Blood Pressure [Right Arm] 114/48 L Blood Pressure Mean [Right Arm] 70 Blood Pressure Source [Right Arm] Automatic Cuff Blood Pressure Position [Right Arm] Supine 02 Sat by Pulse Oximetry 95 98 97 Oxygen Delivery Method Room Air 09/28/24 12:40 09/28/24 12:50 Temperature Temperature Source Pulse Rate 63 65 Pulse Rate [Right Radial] Respiratory Rate Blood Pressure 101/58 L 113/57 L Blood Pressure [Right Arm] Blood Pressure Mean [Right Arm] Blood Pressure Source [Right Arm] Blood Pressure Position [Right Arm] 02 Sat by Pulse Oximetry 96 96 Oxygen Delivery Method Orders (Tests/Meds): ED MEDICATIONS Discontinued Medications Generic Name Dose Route Start Last Admin Trade Name Andi PRN Reason Stop Dose Admin Acetaminophen 1,000 mg 09/28/24 12:09 09/28/24 12:18 Acetaminophen 500mg Tab PO 09/28/24 12:10 1,000 mg ONCE ONE Administration Ibuprofen 600 mg 09/28/24 12:09 09/28/24 12:18 Ibuprofen 600 Mg Tablet PO 09/28/24 12:10 600 mg ONCE ONE Administration ORDERS Category Date Time Status Forearm XR right 2 views [XR forearm RT 2V] Stat Exams 09/28/24 12:09 Completed Hand XR right 2 views [XR hand RT 2V] Stat Exams 09/28/24 12:09 Completed Wrist XR right 2 views [XR wrist RT 2V] Stat Exams 09/28/24 12:09 Completed HIV Combo Stat Lab 09/28/24 12:12 Ordered Hepatitis C Ab Qual. W/ RFX Stat Lab 09/28/24 12:12 Ordered Medical Decision Narrative: Sandra Cohen is an 84-year-old female with a history of hypertension, recently diagnosed diabetes who presents the emergency department for complaints of pain, swelling to her right hand and wrist area after a fall. Patient states that last evening, she tripped on an air vent and fell forward. She braced herself with her right hand outstretched. She states that her thumb bent backwards. She did not hit her head or lose consciousness. She had some pain last night took Tylenol, however the pain woke her up this morning. She noticed some increased swelling at the base of her thumb and first finger as well as into her wrist with shooting pain up her forearm. She is concerned she may have broken a bone. She denies any other injuries or trauma. On arrival, patient hemodynamically stable, no acute respiratory distress, breathing company on room air with appropriate oxygen saturation. Afebrile. Physical exam, stated above, revealed overall well-appearing female in no distress. She has swelling, bruising and tenderness over the right hand near the base of the thumb and the right second digit. This area is tender. She is able to abduct and perform thumb opposition. 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 Sensation intact. Less than 2-second capillary refill. 2+ radial pulse. She does have some swelling in the distal wrist. Limited range of motion of the wrist secondary to pain. Full range of motion at the elbow and shoulder without tenderness in this area. Differential diagnosis includes, but is not limited to: Fracture, dislocation, deep bruise, sprain, among others. The most morbid conditions were considered and workup was based on these. Workup in the emergency room included: Right hand x-rays, right wrist x-rays, right forearm x-rays. The patient was given Tylenol and ibuprofen p.o. for symptom control. X-ray imaging was interpreted by me personally. No acute fractures or dislocation. Patient does have significant arthritis throughout joint spaces of the right hand and wrist. See radiology report for details. Given this, is felt the patient likely sprained her wrist and has deep bruising. Will place her in a thumb spica splint and recommended Tylenol and ibuprofen for pain control. She was structured to follow-up with her primary care physician if symptoms do not improve. Return precautions were given. All questions were answered. She demonstrated understanding and was in agreement this plan. She was then discharged from the emergency department in stable condition peer Critical Care Critical Care Time Critical Care Time: No
--- NOTE | 2024-09-28 12:09 | XR_ITS ---
FINAL REPORT CLINICAL HISTORY: Fall, right wrist/forearm swelling pain COMPARISON: None FINDINGS: Two views of the right forearm were obtained. There is no acute fracture or dislocation. Moderate arthritic changes. There is no acute soft tissue abnormality. IMPRESSION: No acute abnormality identified. Reviewed, Interpreted and Dictated by Efra Monet MD Transcribed by Aminata Herrera Authenticated and [facility]
--- NOTE | 2024-09-28 12:09 | XR_ITS ---
FINAL REPORT CLINICAL HISTORY: Fall, right hand swelling pain COMPARISON: None FINDINGS: Two views of the right wrist were obtained. There is no acute fracture. No subluxation or dislocation. Advanced arthritic changes. Osteopenia is noted. There is no acute soft tissue abnormality. IMPRESSION: No acute abnormality identified. Reviewed, Interpreted and Dictated by Efra Monet MD Transcribed by Aminata Herrera Authenticated and [facility]
--- NOTE | 2024-09-28 12:09 | XR_ITS ---
FINAL REPORT CLINICAL HISTORY: Fall, right hand swelling pain COMPARISON: None FINDINGS: Two views of the right hand were obtained. There is no acute fracture or subluxation. 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 There is no acute soft tissue abnormality. IMPRESSION: No acute abnormality identified. Reviewed, Interpreted and Dictated by Efra Monet MD Transcribed by Aminata Herrera Authenticated and [facility]
--- OUTSIDE RECORDS SUMMARY | 2024-09-28 12:11 | XMS_ITS ---
Author Organization Unknown Allergies, Adverse Reactions and Alerts Date IsAllergic OnsetDate Allergen Reaction Type Severity Jeffery rgyCode Legacyallergictoid ReactionCode ReactionCodeSystemID Custom 09/14 00:00 :00 1 Claritin itching [id number] 09/14 00:00 :00 1 Latex 09/14 00:00 :00 1 BAAL 09/14 00:00 :00 1 Adhesive 09/14 00:00 :00 1 SEPTISOL 09/14 00:00 :00 1 DIDIER EPHEDRINE NASAL DECONGES 09/14 00:00 :00 1 Laxative [id number] 09/14 00:00 :00 1 Balsam Rip-Cast or Oil [id number] 09/14 00:00 :00 1 Gum Base (Gelatin) 09/14 00:00 :00 1 TELOPAQUE TABLETS 09/14 00:00 :00 1 Flu Virus Vaccine 07/29 00:00 :00 1 Claritin itching [id number] 07/29 00:00 :00 1 Latex 07/29 00:00 :00 1 BAAL 07/29 00:00 :00 1 Adhesive 07/29 00:00 :00 1 SEPTISOL 07/29 00:00 :00 1 DIDIER EPHEDRINE NASAL DECONGES 07/29 00:00 :00 1 Laxative [id number] 07/29 00:00 :00 1 Balsam Rip-Cast or Oil [id number] 07/29 00:00 :00 1 Gum Base (Gelatin) 07/29 00:00 :00 1 TELOPAQUE TABLETS 07/29 00:00 :00 1 Flu Virus Vaccine 07/08 00:00 :00 1 Claritin itching [id number] 07/08 00:00 :00 1 Latex 07/08 00:00 :00 1 BAAL 07/08 00:00 :00 1 Adhesive 07/08 00:00 :00 1 SEPTISOL 07/08 00:00 :00 1 DIDIER EPHEDRINE NASAL DECONGES 07/08 00:00 :00 1 Laxative [id number] 07/08 00:00 :00 1 Balsam Rip-Cast or Oil [id number] 07/08 00:00 :00 1 Gum Base (Gelatin) 07/08 00:00 :00 1 TELOPAQUE TABLETS 07/08 00:00 :00 1 Flu Virus Vaccine 06/25 00:00 :00 1 Claritin itching [id number] 06/25 00:00 :00 1 Latex 06/25 00:00 :00 1 BAAL 06/25 00:00 :00 1 Adhesive 06/25 00:00 :00 1 SEPTISOL 06/25 00:00 :00 1 DIDIER EPHEDRINE NASAL DECONGES 06/25 00:00 :00 1 Laxative [id number] 06/25 00:00 :00 1 Balsam [place]-Cast or Oil [id number] 06/25 00:00 :00 1 Gum Base (Gelatin) 06/25 00:00 :00 1 TELOPAQUE TABLETS 06/25 00:00 :00 1 Flu Virus Vaccine 06/10 00:00 :00 1 Claritin itching [id number] 06/10 00:00 :00 1 Latex 06/10 00:00 :00 1 BAAL 06/10 00:00 :00 1 Adhesive 06/10 00:00 :00 1 SEPTISOL 06/10 00:00 :00 1 DIDIER EPHEDRINE NASAL DECONGES 06/10 00:00 :00 1 Laxative [id number] 06/10 00:00 :00 1 Balsam [place]-Cast or Oil [id number] 06/10 00:00 :00 1 Gum Base (Gelatin) 06/10 00:00 :00 1 TELOPAQUE TABLETS 06/10 00:00 :00 1 Flu Virus Vaccine 06/04 00:00 :00 1 Claritin itching [id number] 06/04 00:00 :00 1 Latex 06/04 00:00 :00 1 BAAL 06/04 00:00 :00 1 Adhesive 06/04 00:00 :00 1 SEPTISOL 06/04 00:00 :00 1 DIDIER EPHEDRINE NASAL DECONGES 06/04 00:00 :00 1 Laxative [id number] 06/04 00:00 :00 1 Balsam Rip-Cast or Oil [id number] 06/04 00:00 :00 1 Gum Base (Gelatin) 06/04 00:00 :00 1 TELOPAQUE TABLETS 06/04 00:00 :00 1 Flu Virus Vaccine 05/18 00:00 :00 1 Claritin itching [id number] 05/18 00:00 :00 1 Latex 05/18 00:00 :00 1 BAAL 05/18 00:00 :00 1 Adhesive 05/18 00:00 :00 1 SEPTISOL 05/18 00:00 :00 1 DIDIER EPHEDRINE NASAL DECONGES 05/18 00:00 :00 1 Laxative [id number] 05/18 00:00 :00 1 Balsam [place]-Cast or Oil [id number] 05/18 00:00 :00 1 Gum Base (Gelatin) 05/18 00:00 :00 1 TELOPAQUE TABLETS 05/18 00:00 :00 1 Flu Virus Vaccine 05/11 00:00 :00 1 Claritin itching [id number] 05/11 00:00 :00 1 Latex 05/11 00:00 :00 1 BAAL 05/11 00:00 :00 1 Adhesive 05/11 00:00 :00 1 SEPTISOL 05/11 00:00 :00 1 DIDIER EPHEDRINE NASAL DECONGES 05/11 00:00 :00 1 Laxative [id number] 05/11 00:00 :00 1 Balsam Rip-Cast or Oil [id number] 05/11 00:00 :00 1 Gum Base (Gelatin) 05/11 00:00 :00 1 TELOPAQUE TABLETS 05/11 00:00 :00 1 Flu Virus Vaccine 03/25 00:00 :00 1 Claritin itching [id number] 03/25 00:00 :00 1 Latex 03/25 00:00 :00 1 BAAL 03/25 00:00 :00 1 Adhesive 03/25 00:00 :00 1 SEPTISOL 03/25 00:00 :00 1 DIDIER EPHEDRINE NASAL DECONGES 03/25 00:00 :00 1 Laxative [id number] 03/25 00:00 :00 1 Balsam [place]-Cast or Oil [id number] 03/25 00:00 :00 1 Gum Base (Gelatin) 03/25 00:00 :00 1 TELOPAQUE TABLETS 03/25 00:00 :00 1 Flu Virus Vaccine 03/23 00:00 :00 1 Claritin itching [id number] 03/23 00:00 :00 1 Latex 03/23 00:00 :00 1 BAAL 03/23 00:00 :00 1 Adhesive 03/23 00:00 :00 1 SEPTISOL 03/23 00:00 :00 1 DIDIER EPHEDRINE NASAL DECONGES 03/23 00:00 :00 1 Laxative [id number] 03/23 00:00 :00 1 Balsam [place]-Cast or Oil [id number] 03/23 00:00 :00 1 Gum Base (Gelatin) 03/23 00:00 :00 1 TELOPAQUE TABLETS 03/23 00:00 :00 1 Flu Virus Vaccine 03/12 00:00 :00 1 Claritin itching [id number] 03/12 00:00 :00 1 Latex 01/23 /2025 00:00 :00 1 BAAL 03/12 00:00 :00 1 Adhesive 03/12 00:00 :00 1 SEPTISOL 03/12 00:00 :00 1 DIDIER EPHEDRINE NASAL DECONGES 03/12 00:00 :00 1 Laxative [id number] 03/12 00:00 :00 1 Balsam Rip-Cast or Oil [id number] 03/12 00:00 :00 1 Gum Base (Gelatin) 03/12 00:00 :00 1 TELOPAQUE TABLETS 03/12 00:00 :00 1 Flu Virus Vaccine 02/26 00:00 :00 1 Claritin itching [id number] 02/26 00:00 :00 1 Latex 02/26 00:00 :00 1 BAAL 02/26 00:00 :00 1 Adhesive 02/26 00:00 :00 1 SEPTISOL 02/26 00:00 :00 1 DIDIER EPHEDRINE NASAL DECONGES 02/26 00:00 :00 1 Laxative [id number] 02/26 00:00 :00 1 Balsam [place]-Cast or Oil [id number] 02/26 00:00 :00 1 Gum Base (Gelatin) 02/26 00:00 :00 1 TELOPAQUE TABLETS 02/26 00:00 :00 1 Flu Virus Vaccine 02/16 00:00 :00 1 Claritin itching [id number] 02/16 00:00 :00 1 Latex 02/16 00:00 :00 1 BAAL 02/16 00:00 :00 1 Adhesive 02/16 00:00 :00 1 SEPTISOL 02/16 00:00 :00 1 DIDIER EPHEDRINE NASAL DECONGES 02/16 00:00 :00 1 Laxative [id number] 02/16 00:00 :00 1 Balsam [place]-Cast or Oil [id number] 02/16 00:00 :00 1 Gum Base (Gelatin) 02/16 00:00 :00 1 TELOPAQUE TABLETS 02/16 00:00 :00 1 Flu Virus Vaccine 02/03 00:00 :00 1 Claritin itching [id number] 02/03 00:00 :00 1 Latex 02/03 00:00 :00 1 BAAL 02/03 00:00 :00 1 Adhesive 02/03 00:00 :00 1 SEPTISOL 02/03 00:00 :00 1 DIDIER EPHEDRINE NASAL DECONGES 02/03 00:00 :00 1 Laxative [id number] 02/03 00:00 :00 1 Balsam [place]-Cast or Oil [id number] 02/03 00:00 :00 1 Gum Base (Gelatin) 02/03 00:00 :00 1 TELOPAQUE TABLETS 02/03 00:00 :00 1 Flu Virus Vaccine 02/02 00:00 :00 1 Claritin itching [id number] 02/02 00:00 :00 1 Latex 02/02 00:00 :00 1 BAAL 02/02 00:00 :00 1 Adhesive 02/02 00:00 :00 1 SEPTISOL 02/02 00:00 :00 1 DIDIER EPHEDRINE NASAL DECONGES 02/02 00:00 :00 1 Laxative [id number] 02/02 00:00 :00 1 Balsam Rip-Cast or Oil [id number] 02/02 00:00 :00 1 Gum Base (Gelatin) 02/02 00:00 :00 1 TELOPAQUE TABLETS 02/02 00:00 :00 1 Flu Virus Vaccine 01/08 00:00 :00 1 Claritin itching [id number] 01/08 00:00 :00 1 Latex 01/08 00:00 :00 1 BAAL 01/08 00:00 :00 1 Adhesive 01/08 00:00 :00 1 SEPTISOL 01/08 00:00 :00 1 DIDIER EPHEDRINE NASAL DECONGES 01/08 00:00 :00 1 Laxative [id number] 01/08 00:00 :00 1 Balsam [place]-Cast or Oil [id number] 01/08 00:00 :00 1 Gum Base (Gelatin) 01/08 00:00 :00 1 TELOPAQUE TABLETS 01/08 00:00 :00 1 Flu Virus Vaccine 12/30 00:00 :00 1 Claritin itching [id number] 12/30 00:00 :00 1 Latex 12/30 00:00 :00 1 BAAL 12/30 00:00 :00 1 Adhesive 12/30 00:00 :00 1 SEPTISOL 12/30 00:00 :00 1 DIDIER EPHEDRINE NASAL DECONGES 12/30 00:00 :00 1 Laxative [id number] 12/30 00:00 :00 1 Balsam Rip-Cast or Oil [id number] 12/30 00:00 :00 1 Gum Base (Gelatin) 12/30 00:00 :00 1 TELOPAQUE TABLETS 12/30 00:00 :00 1 Flu Virus Vaccine 12/11 00:00 :00 1 Claritin itching [id number] 12/11 00:00 :00 1 Latex 12/11 00:00 :00 1 BAAL 12/11 00:00 :00 1 Adhesive 12/11 00:00 :00 1 SEPTISOL 12/11 00:00 :00 1 DIDIER EPHEDRINE NASAL DECONGES 12/11 00:00 :00 1 Laxative [id number] 12/11 00:00 :00 1 Balsam Rip-Cast or Oil [id number] 12/11 00:00 :00 1 Gum Base (Gelatin) 12/11 00:00 :00 1 TELOPAQUE TABLETS 12/11 00:00 :00 1 Flu Virus Vaccine 12/10 00:00 :00 1 Claritin itching [id number] 12/10 00:00 :00 1 Latex 12/10 00:00 :00 1 BAAL 12/10 00:00 :00 1 Adhesive 12/10 00:00 :00 1 SEPTISOL 12/10 00:00 :00 1 DIDIER EPHEDRINE NASAL DECONGES 12/10 00:00 :00 1 Laxative [id number] 12/10 00:00 :00 1 Balsam Rip-Cast or Oil [id number] 12/10 00:00 :00 1 Gum Base (Gelatin) 12/10 00:00 :00 1 TELOPAQUE TABLETS 12/10 00:00 :00 1 Flu Virus Vaccine 12/08 00:00 :00 1 Claritin itching [id number] 12/08 00:00 :00 1 Latex 12/08 00:00 :00 1 BAAL 12/08 00:00 :00 1 Adhesive 12/08 00:00 :00 1 SEPTISOL 12/08 00:00 :00 1 DIDIER EPHEDRINE NASAL DECONGES 12/08 00:00 :00 1 Laxative [id number] 12/08 00:00 :00 1 Balsam Rip-Cast or Oil [id number] 12/08 00:00 :00 1 Gum Base (Gelatin) 12/08 00:00 :00 1 TELOPAQUE TABLETS 12/08 00:00 :00 1 Flu Virus Vaccine 11/17 00:00 :00 1 Claritin itching [id number] 11/17 00:00 :00 1 Latex 11/17 00:00 :00 1 BAAL 11/17 00:00 :00 1 Adhesive 11/17 00:00 :00 1 SEPTISOL 11/17 00:00 :00 1 DIDIER EPHEDRINE NASAL DECONGES 11/17 00:00 :00 1 Laxative [id number] 11/17 00:00 :00 1 Balsam [place]-Cast or Oil [id number] 11/17 00:00 :00 1 Gum Base (Gelatin) 11/17 00:00 :00 1 TELOPAQUE TABLETS 11/17 00:00 :00 1 Flu Virus Vaccine 11/13 00:00 :00 1 Claritin itching [id number] 11/13 00:00 :00 1 Latex 11/13 00:00 :00 1 BAAL 11/13 00:00 :00 1 Adhesive 11/13 00:00 :00 1 SEPTISOL 11/13 00:00 :00 1 DIDIER EPHEDRINE NASAL DECONGES 11/13 00:00 :00 1 Laxative [id number] 11/13 00:00 :00 1 Balsam [place]-Cast or Oil [id number] 11/13 00:00 :00 1 Gum Base (Gelatin) 11/13 00:00 :00 1 TELOPAQUE TABLETS 11/13 00:00 :00 1 Flu Virus Vaccine
--- OUTSIDE RECORDS SUMMARY | 2024-09-28 12:11 | XMS_ITS | Patient Health Record ---
Author Organization [facility] Address [address] [place] [id number] Care Team Providers Care Manager Of Construction Name Role Phone Jessica Song Primary Care Provider [phone] Toñito Laird Unavailable [phone] Allergies Allergen (clinical drug ingredient) Drug/Non Drug Allergy documented on EMR Reaction Allergy Type Onset Date Status BAAL (uncoded) Unknown Allergy Activ e DIDIER EPHEDRINE NASA L DECONGES (uncoded) Unknown Allergy Active SEPTISOL (uncoded) Unknown Allergy A ctive TELOPAQUE TABLETS (uncoded) Unknown Allergy Active Balsam R[place] Oil Unknown Drug Allergy Active Claritin itching Drug Allergy Active Gum Base (Gelatin) Unknown Drug Allergy Active bisacodyl Laxative Unknown Drug Allergy Active Adhesive Unknown Allergy Active Flu Virus Vaccine Unknown Drug Allergy Active Latex Latex Unknown Allergy Active Results Component Value Reference Range Notes Glycohemoglobin A1c (in hous e) Reviewed date:11/14/2023 04:38:53 PM Interpretation:6.3% Performing Lab: Notes/Report: 6.3% glycohemoglobin 6.3% 5 - 6.5 % P-Basic Metabolic Panel (BMP ) Reviewed date:11/18/2023 11:13:15 AM Interpretation:Cr 1.01, gfr 55 Performing Lab: Notes/Report: Test performed by [facility], [employer] [place] [facility] , [address], [place] [address] Jostin Bradley MD, Airplane Tester CLIA: [id number] Sodium 136 135-145 mmol/L Potassium 4.9 3.5-5.3 mmol/L Chloride 101 97-108 mmol/L CO2 26 22-32 mmol/L Glucose 96 65-99 mg/dL BUN 16 8-23 mg/dL Creatinine 1.01 0.50-1.00 mg/dL Calcium 9.4 8.6-10.4 mg/dL eGFR by Creatinine 55 >59 mL/min/1.73m2 P-Comprehensive Metabolic Pa ever (CMP) Reviewed date:06/10/2024 04:58:20 PM Interpretation:Na 134, cl 96, glu 102, creat 1.14, eGFR 47 Performing Lab: Notes/Report: Test performed by [facility] [address] [place], [place] [address] [place] , [address], [place] [address] Jostin Bradley MD, Airplane Tester CLIA: [id number] Sodium 134 135-145 mmol/L Potassium 4.5 3.5-5.3 [...] Interpretation:6.1 Performing Lab: Notes/Report: Test performed by [facility] [address] [place], [place] [address] [place] , [address], [place] [address] Jostin Bradley MD, Airplane Tester CLIA: [id number] Hemoglobin A1C 6.1 <5.7 % The following HbA1c ranges recommended by the [place] [employer] (ADA) may be used as an aid in the diagnosis of diabetes mellitus. HbA1c Suggested Diagnosis >=6.5% Diabetic 5.7% - 6.4% Pre-Diabetic <5.7% Non-Diabetic Estimated Average Glucose Reviewed date:06/10/2024 04:58:20 PM Interpretation:128 Performing Lab: Notes/Report: Test performed by [facility] [address] [place] [address] [address], [place] [address] Jostin Bradley MD, Airplane Tester CLIA: [id number] Estimated Average Glucose (eAG) 128 Estimated Average Glucose (eAG) is calculated using the equation eAG = (28.7 x HbA1c) - 46.7 based on the guidelines established by the ADA. If the patient has certain diseases including kidney disease, sickle cell anemia, thalassemia, or is taking medications such as dapsone, erythropoietin, or iron, eAG should not be evaluated. Ultrasound : Breasts, bilate ral Reviewed date:07/28/2024 11:28:43 AM Interpretation:see mammorgram results Performing Lab: Notes/Report: see mammorgram results Ultrasound : Breasts, bilate ral Reviewed date:07/28/2024 11:28:43 AM Interpretation:see mammorgram results Performing Lab: Notes/Report: see mammorgram results Mammogram Reviewed date:07/29/2024 01:07:48 PM Interpretation:benign Performing Lab: Notes/Report: benign Glycohemoglobin A1c (in hous e) Reviewed date:09/17/2024 05:30:20 PM Interpretation:Normal Performing Lab: Notes/Report: Normal glycohemoglobin 5.9% 5 - 6.5 % P-Basic Metabolic Panel (BMP ) Reviewed date:09/17/2024 05:30:20 PM Interpretation:Normal Performing Lab: Notes/Report: Test performed by [facility] [address] [place] [address] [address], [place] [address] Jostin Bradley MD, Airplane Tester CLIA: [id number] Sodium 138 135-145 mmol/L Potassium 4.3 3.5-5.3 mmol/L Chloride 101 97-108 mmol/L CO2 27 20-32 mmol/L Glucose 100 65-99 mg/dL BUN 21 8-23 mg/dL Creatinine 0.90 0.50-1.00 mg/dL Calcium 9.8 8.6-10.4 mg/dL eGFR by Creatinine 63 >59 mL/min/1.73m2 P-TSH Reviewed date:09/17/2024 05:30:20 PM Interpretation:Normal Performing Lab: Notes/Report: Test performed by [facility] [address] [place] [address] , [address], [place] [address] Jostin Bradley MD, Airplane Tester CLIA: [id number] TSH 1.02 0.43-5.25 mU/L Ultrasound : Breast, left Reviewed date:12/31/2023 09:25:02 AM Interpretation:Multiple Cysts; Left breast mammogram recommended since pain is new since screening mamm Performing Lab: Notes/Report: Multiple Cysts; Left breast mammogram recommended since pain is new since screening mamm Mammogram : Diagnostic Left Breast Reviewed date:02/04/2024 10:20:29 AM Interpretation:benign, pain believed to be related to underlying cysts, clinical f/u recommended Performing Lab: Notes/Report: benign, pain believed to be related to underlying cysts, clinical f/u recommended Medications Medication SIG (Take, Route, Frequency, Duration) Notes Start Date End Date Status Bisoprolol Fumarate 5 MG TAKE 1/2 TABLET BY MOUTH DAILY; Duration: 90 Active Triamterene-HCTZ 37.5-25 MG 1 tab(s) orally once a day; Duration: 90 days Active Gabapentin 300 MG 1 capsule Orally 3 t imes a day; Duration: 30 days 09/22/2024 Active traMADol-Acetaminophen 37.5-325 MG 1 tab(s) orally Four times a day as needed 03/24/2024 Active Atorvastatin Calcium 20 MG TAKE 1 TABLET BY MOUTH EVERY DAY AT BEDTIME; Duration: 90 Active Synthroid 50 MCG TAKE 1 TABLET BY PHILIP DAILY IN THE MORNING ON AN EMPTY STOMACH; Duration: 90 Active metFORMIN HCl 500 MG TAKE 1 TABLET BY MO UTH DAILY WITH A MEAL; Duration: 90 days Active Aspir-Low 81 MG 1 tab(s) orally once a day Active Fluticasone Propionate 50 MCG/ACT 2 spray(s) intranasally once a day; Duration: 30 Not-Aniket ing Co Q10 100MG 1 TAB ORAL ONCE DAYO Y AT BEDTIME 12/26/2010 Active ZyrTEC 10 MG 1 TAB ORALLY ONCE DAILY Active Immunizations Vaccine Route Administration Date Status Comme nts Tetanus Tdap-Adacel (over 7yrs) IM Intramuscular 03/23/2015 Administered Prevnar (PCV20) ID Intradermal 03/14/2023 Administered Prevnar (PCV13) IM Intramuscular 04/29/2014 Administered PNEUMOVAX 23 VACCINE IM Intramuscular 02/20/2011 Administe red PNEUMOVAX 23 VACCINE IM Intramuscular 03/07/2017 Administe red pneumovax IM Intramuscular 03/22/2005 Administered DT, 7 YEARS OR OLDER IM Intramuscular 03/22/2005 Administe red COVID 19 Moderna Unknown 03/30/2020 Administered COVID 19 Moderna Unknown 2020 Administered COVID 19 Moderna Unknown 12/24/2020 Administered Problems Problem Type SNOMED Code ICD Code Onset Dates Problem Status W/U Status Risk Notes Problem Type 2 diabetes mellitus (28387895) Type 2 diabetes mellitus (E11.9) Active confirmed Problem Hyperglycemia (94604856) Hyperglycemia (R73.9) Active confirmed Problem Essential hypertension (76946598) Essential hypertension (I10) Active confirmed Problem Postherpetic neuralgia (4982603) Post herpetic neuralgia (B02.29) Active confirmed Problem Cervicalgia (87308912) Cervicalgia (M54.2) Active confirmed Problem Seasonal allergic rhinitis (536248344) Other seasonal allergic rhinitis (J30.2) Active confirmed Problem Tinea corporis (58788099) Tinea corporis (B35.4) Active confirmed Problem Mixed hyperlipidemia (775100570) Mixed hyperlipidemia (E78.2) Active confirmed Problem Chronic pain (02918681) Other chronic pain (G89.29) Active confirmed Problem Fibrocystic breast changes (52826618) Diffuse cystic mastopathy of right breast (N60.11) Active confirmed Problem Fibrocystic breast changes (38473376) Diffuse cystic mastopathy of left breast (N60.12) Active confirmed Problem Hysterectomy (361395044) Acquired absence of both cervix and uterus (Z90.710) Active confirmed Problem Absent ovary, acquired (201103389) Acquired absence of ovaries, unilateral (Z90.721) Active confirmed Problem History of polyp of colon (situation) (280952995) History of colon polyps (Z86.010) Active confirmed Problem Acquired hypothyroidism (118769149) Acquired hypothyroidism (E03.9) Active confirmed Problem Mammography abnormal (292242342) Abnormal mammogram of left breast (R92.8) Active confirmed Problem Chronic cystitis (66472029) Chronic cystitis (N30.20) Active confirmed Problem Abnormal gait (28219150) Imbalance (R26.89) Active confirmed Problem Renal cyst (132317031) Renal cyst (N28.1) Active confirmed Problem Endometrial lesion (76215028735628) Endometrial mass (N94.89) Active confirmed Problem Incontinence (88372158) Incontinence in female (R32) Active confirmed Problem Endometrial polyp (0727354695) Endometrial polyp (N84.0) Active confirmed Problem Endometrial carcinoma (334227233) Endometrial carcinoma (C54.1) Active confirmed Problem Osteopenia (260608619) Osteopenia, unspecified location (M85.80) Active confirmed Problem Osteoarthritis of knee (658206395) Arthropathy of both knees (M17.0) Active confirmed Problem Fibrocystic breast changes (89781246) Fibrocystic breast disease (FCBD), unspecified laterality (N60.19) Active confirmed Problem Seasonal allergic rhinitis (965268183) Seasonal allergic rhinitis, unspecified trigger (J30.2) Active confirmed Problem Fibrocystic breast changes (71591593) Fibrocystic disease of left breast (N60.12) Active confirmed Problem Age-related nuclear cataract of left eye (807843814884265) Age-related nuclear cataract of left eye (H25.12) Active confirmed Problem Personal history of primary malignant neoplasm of female genital organ (120305384) History of endometrial cancer (Z85.42) Active confirmed Problem Osteoarthritis of knee (313043121) Knee arthropathy (M17.10) Active confirmed Vital Signs Heart Rate 66 /min 09/14/2024 Blood pressure diastolic 70 mm Hg 09/14/2024 Height 66 in 09/14/2024 Blood pressure systolic 120 mm Hg 09/14/2024 Weight 164.8 lbs 09/14/2024 BMI 26.6 kg/m2 09/14/2024 Encounters Encounter Location Date Provider Diagnosis [facility] [address] [facility] [address] [facility] [address] [place] [id number] 11/14/2023 Jessica Song Knee arthropathy M17 .10 ; Bunion, right foot M21.611 ; Essential hypertension I10 ; Acquired hypothyroidism E03.9 ; Fibrocystic breast disease (FCBD), unspecified laterality N60.19 and Hyperglycemia R73.9 [facility] [address] [facility] [address] [place] [id number] 12/12/2023 J Chris Song Pain of left breast N64.4 and Essential hypertension I10 [facility] [address] [facility] [address] [place] [id number] 03/12/2024 J Chris Duncan Essential hypertensi on I10 [facility] [address] [facility] [address] [place] [id number] 06/04/2024 J Chris Duncan Essential hypertensi on I10 ; Acquired hypothyroidism E03.9 ; Fibrocystic disease of left breast N60.12 ; Arthropathy of both knees M17.0 ; Type 2 diabetes mellitus E11.9 ; Mixed hyperlipidemia E78.2 and BMI 27.0-27.9,adult Z68.27 [facility] [address] [facility] [address] [place] [id number] 09/14/2024 J Chris Duncan Essential hypertensi on I10 ; Acquired hypothyroidism E03.9 ; Type 2 diabetes mellitus E11.9 and BMI 26.0-26.9,adult Z68.26 [facility] [address] [facility] [address] [place] [id number] 02/17/2024 J Chris Duncan Essential hypertensi on I10 and Acquired hypothyroidism E03.9 [facility] [address] [facility] [address] [place] [id number] 11/18/2023 J Chris Duncan [facility] [address] [facility] [address] [place] [id number] 12/09/2023 J Chris Duncan [facility] [address] [facility] [address] [place] [id number] 12/11/2023 J Chris Duncan [facility] [address] [facility] [address] [place] [id number] 12/31/2023 J Chris Song Abnormal mammogram o f left breast R92.8 [facility] [address] [facility] [address] [place] [id number] 01/09/2024 J Chris Song Other chronic pain G89.29 [facility] [address] [place] [id number] 02/03/2024 J Chris Song [facility] [address] [place] [id number] 02/04/2024 J Chris Song [facility] [address] [place] [id number] 03/23/2024 Jessica Song Other chronic pain G89.29 [facility] [address] [place] [id number] 03/25/2024 J Chris Song [facility] [address] [place] [id number] 05/18/2024 Toñito Meyers Chuck Other chronic pain G89.29 [facility] [address] [place] [id number] 06/10/2024 J Chris Song [facility] [address] [place] [id number] 06/25/2024 J Chris Song Other chronic pain G89.29 [facility] [address] [place] [id number] 07/08/2024 J Chris Song Breast cancer screen ing by mammogram Z12.31 and Fibrocystic breast disease (FCBD), unspecified laterality N60.19 [facility] [address] [place] [id number] 07/29/2024 J Chris Song Essential hypertensi on I10 and Other chronic pain G89.29 [facility] [address] [place] [id number] 09/21/2024 J Chris Song Other chronic pain G89.29 Assessments Encounter Date Diagnosis (ICD Code) Assessment Notes Treatment Notes Treatment Clinical Notes Section Notes 11/14/2023 Knee arthropathy (ICD-10 - M17.10) 12/12/2023 Essential hypertension (ICD-10 - I10) 12/12/2023 Pain of left breast (ICD-10 - N64.4) 12/31/2023 Abnormal mammogram of left breast (ICD-10 - R92.8) 01/09/2024 Other chronic pain (ICD-10 - G89.29) 02/17/2024 Essential hypertension (ICD-10 - I10) 02/17/2024 Acquired hypothyroidism (ICD-10 - E03.9) 03/12/2024 Essential hypertension (ICD-10 - I10) continue current therapy 03/23/2024 Other chronic pain (ICD-10 - G89.29) 05/18/2024 Other chronic pain (ICD-10 - G89.29) 11/14/2023 Bunion, right foot (ICD-10 - M21.611) 06/04/2024 Essential hypertension (ICD-10 - I10) continue current therapy 06/04/2024 Acquired hypothyroidism (ICD-10 - E03.9) 06/25/2024 Other chronic pain (ICD-10 - G89.29) 07/08/2024 Fibrocystic breast disease (FCBD), unspecified laterality (ICD-10 - N60.19) 07/08/2024 Breast cancer screening by mammogram (ICD-10 - Z12.31) 07/29/2024 Essential hypertension (ICD-10 - I10) 09/14/2024 Essential hypertension (ICD-10 - I10) 09/14/2024 Acquired hypothyroidism (ICD-10 - E03.9) 09/21/2024 Other chronic pain (ICD-10 - G89.29) 07/29/2024 Other chronic pain (ICD-10 - G89.29) 09/14/2024 Type 2 diabetes mellitus (ICD-10 - E11.9) 06/04/2024 Fibrocystic disease of left breast (ICD-10 - N60.12) 11/14/2023 Essential hypertension (ICD-10 - I10) 11/14/2023 Acquired hypothyroidism (ICD-10 - E03.9) 06/04/2024 Arthropathy of both knees (ICD-10 - M17.0) 09/14/2024 BMI 26.0-26.9,adult (ICD-10 - Z68.26) 11/14/2023 Fibrocystic breast disease (FCBD), unspecified laterality (ICD-10 - N60.19) 06/04/2024 Type 2 diabetes mellitus (ICD-10 - E11.9) 11/14/2023 Hyperglycemia (ICD-10 - R73.9) 06/04/2024 Mixed hyperlipidemia (ICD-10 - E78.2) 06/04/2024 BMI 27.0-27.9,adult (ICD-10 - Z68.27) Plan Of Treatment Next Appt Details Provider Name:Jessica Perea er, 01/18/2025 11:45:00 AM, [address], [place], [place], [id number], Insurance Providers Payer Name Payer Address Payer Phone Subscriber Number Group Number Insured Name Patient Relationship to Insured Coverage Start Date Coverage End Date [employer] (MEDICAR E) [address] [address] [place] [address] [phone] [id number] Self - patient is the insured Medical (General) History Medical History History ICD Code HYPOTHYROIDISM HEP A & B rheumatoid arthritis irritable bowel syndrome fibrocystic disease Hypertension Endometrial Carcinoma left Spigelian hernia, Dx CT 08/2018 Covid Vaccine x2 - April 2020, Moderna Negative COVID 19 PCR, 03/08/2021 COVID 19 BOOSTER 2022 COVID 19 BOOSTER 10/31/23, Randy Surgical History Surgery Date(Month/Year) tonsillectomy adenoidectomy splenectomy fatty tumor removed from right rib cage cyst removal from lower back cyst removal left breast mastectomy 1974 sinus surgery, took out a cyst and corre cted her broken nose 03-03-09 US of GB, some sludge 09/28/2011 cricopharyngeal dilatation, vocal cord b iopsy with leukoplakia vaginal polypectiomy 02/17/16 hysterectomy, endometrial carcinoma, [facility] Rusesll [facility] 04/18/16 breast biopsy Left breast, Dr. Morgan, [facility] 05/08/16 polyp removal after colonoscopy 08/23/16 HIDA scan - sludge 07/04/16 tubular adenomas of colon, Dr. Morgan 03/20 hyperplastic polyp 2020 EGD with dilatation, Dr. Ballesteros 10/03/2023 Hospitalization History Reason Date(Month/Year) colonoscopy 08/23/16
[2024-09-28] MEDS: ACETAMINOPHEN 500MG TAB 1000 MG PO (12:18)
[2024-09-28] MEDS: IBUPROFEN 600 MG TABLET PO (12:18)
== END 2024-09-28 13:19 | disposition home or self-care (01) ==
PROVIDERS: Emergency Provider Student in an Organized Health Care Education/Training Program; PCP Family Medicine
DX: S63.501A Unspecified sprain of right wrist, initial encounter (principal); M79.641 Pain in right hand; W01.10XA Fall on same level from slipping, tripping and stumbling with subsequent striking against unspecified object, initial encounter
CPT/HCPCS: 73090; 73100; 73120; 99284